=== PATIENT | female | born 1955 | race Caucasian/White ===

== ENCOUNTER 2019-10-04 10:16 | Outpatient (CLI) | payer OTHER, SELFPAY ==
--- NOTE | ~2019-10-04 | US_ITS ---
EXAMINATION: US venous doppler [facility] EXAM DATE: 10/04/2019 10:50 INDICATION: Left leg pain. TECHNIQUE: Multiple grayscale, color flow and Doppler images of the left lower extremity deep venous system were obtained and reviewed. There is no prior study for comparison. FINDINGS: The left common femoral, femoral and profunda veins demonstrate normal color flow, respirat ory variation, augmentation and compressibility. Compressibility, color flow confirmed within the le ft popliteal, posterior tibial, peroneal, and greater saphenous veins. IMPRESSION: 1. No left lower extremity deep venous thrombosis. Reviewed, dictated and finalized at location B.
== END 2019-10-04 10:17 | disposition home or self-care (01) ==
PROVIDERS: PCP Internal Medicine; Visit Provider Internal Medicine
DX: R52 Pain, unspecified (principal); R60.9 Edema, unspecified
CPT/HCPCS: 93971

== ENCOUNTER 2020-02-29 09:49 | Outpatient (CLI) | payer OTHER, SELFPAY ==
--- NOTE | ~2020-02-29 | MM_ITS ---
EXAMINATION: MM screening kyle BI w gini HISTORY: Screening TECHNIQUE: Craniocaudal and mediolateral oblique 3-D tomosynthesis images were obtained and synthetic 2-D images were generated. CAD analysis was submitted and interpreted. COMPARISON: Comparison to multiple prior studies sequentially, with oldest reviewed study dated 04/2014. BREAST PARENCHYMAL COMPOSITION: The breasts are heterogeneously dense, which may obscure small masses . FINDINGS: There is no evidence of suspicious mass, calcification, or architectural distortion to sugg est malignancy in either breast. There has been no suspicious interval change. IMPRESSION: 1. No mammographic evidence of malignancy. 2. Recommend routine screening mammography in one year. BI-RADS Category 1: Negative Reviewed, dictated and finalized at location A. [facility]
== END 2020-02-29 09:50 | disposition home or self-care (01) ==
LOC: ANHIMG 09:51
PROVIDERS: PCP Internal Medicine; Visit Provider Physician Assistant
DX: Z12.31 Encounter for screening mammogram for malignant neoplasm of breast (principal)
CPT/HCPCS: 77063; 77067

== ENCOUNTER 2020-11-09 00:10 | Day surgery (SDC) | payer OTHER, SELFPAY ==
[2020-11-01 08:35] VITALS: BMI 37.2
--- NOTE | 2020-11-08 18:27 | PM.HPGS ---
History of Present Illness History of Present Illness Consent: Risks, benefits, and alternatives have been discussed and questions answered. Patient agrees to proceed with procedure. Chief complaint: neoplasm screening Narrative: Galilea Elder is a 65 year old female referred for colon cancer screening. Her last colonoscopy was at least 10 years ago Review of Systems Review of Systems: All systems reviewed & are unremarkable except as noted in HPI and below PMFSH Past Medical History Medical History (Updated 11/09/20 @ 07:09 by Greyson Perez MD) Acid reflux H/O vaginal delivery x2 1978, 1976 High cholesterol HTN (hypertension) Lichen sclerosus Sleep apnea Spasmodic dysphonia Surgical History Surgical History H/O breast biopsy 1x right, 3x left H/O tubal ligation 1978 Hx of cholecystectomy 2007 Hx of hysterectomy 1992 Family History Family History Father Diabetes mellitus Cerebrovascular accident Patient's father is Family history of congenital heart disease Family history of arthritis Sibling Family history of blood dyscrasia Mother Patient's mother is Other Family history of cardiovascular disease Family history of gout Family history of malignant neoplasm of breast in first degree relative Hypertension Social History Social History Smoking status: Never smoker Second hand tobacco smoke exposure: No Alcohol intake: current Substance use: never Substance use type: does not use Living arrangements: with family Spiritual care concerns: No Meds Home Medications and Allergies Home Medications Medication Instructions Recorded Confirmed Type ascorbate calcium (vitamin C) 500 500 mg PO DAILY 02/24/19 11/01/20 History mg tablet aspirin 81 mg tablet,delayed 81 mg PO DAILY 02/24/19 11/01/20 History release cholecalciferol (vitamin D3) 100 4,000 unit PO DAILY 02/24/19 11/01/20 History mcg (4,000 unit) capsule fluticasone propionate 50 2 spray NASAL DAILY PRN #15.8 ml 05/13/19 11/01/20 Rx mcg/actuation nasal spray,suspension cyclobenzaprine 5 mg tablet 5 mg PO .QHS PRN #30 tablet 10/04/19 11/01/20 Rx diltiazem HCl 180 mg 360 mg PO DAILY #180 cap 06/27/20 11/01/20 Rx capsule,extended release 24 hr omeprazole 40 mg capsule,delayed 40 mg PO DAILY #90 cap 08/22/20 11/01/20 Rx release clobetasol 1 applic TOPICAL PRN 11/01/20 11/01/20 History Allergies Allergy/AdvReac Type Severity Reaction Status Date / Time codeine AdvReac Mild Nausea Verified 11/09/20 06:21 Exam Resp: Auscultation: clear to auscultation bilaterally Cardio: Rate: regular rate Rhythm: regular rhythm GI: GI Palp: Yes Soft to palpation and No Tenderness to palpation present (GI) Assessment and Plan Assessment and plan (1) Colon cancer screening: Code(s): Z12.11 - Encounter for screening for malignant neoplasm of colon Status: Acute Assessment and Plan: Colonoscopy with possible biopsy or polypectomy or cautery or injection of substances.
[2020-11-09 06:22] VITALS: BP 126/74; PULSE 85; RESP 16; TEMP 36.3; O2SAT 99; BMI 38.4
[2020-11-09] MEDS: LACTATED RINGERS 1,000 ML 150 ML IV CONT (06:37)
--- NOTE | 2020-11-09 07:10 | WPDANESEPPF ---
Anes - Initial Pre Proc Eval Procedure: Operation Date: 11/09/20 07:30 Proposed Procedures p Screening Colonoscopy - Greyson Perez MD Date/Time: 11/09/20 07:10 Surgeon: Greyson Perez MD Pre Op Diagnosis: neoplasm screening Patient Data Age: 65 Gender: F Height: 1.52 m Weight: 89.3 kg Last Vital Signs Temp 97.3 F L 11/09/20 06:22 Pulse 85 11/09/20 06:22 Resp 16 11/09/20 06:22 BP 126/74 11/09/20 06:22 Pulse Ox 99 11/09/20 06:22 Allergies Allergy/AdvReac Type Severity Reaction Status Date / Time codeine AdvReac Mild Nausea Verified 11/09/20 06:21 Home Medications Medication Instructions Recorded Confirmed Type ascorbate calcium (vitamin C) 500 500 mg PO DAILY 02/24/19 11/01/20 History mg tablet aspirin 81 mg tablet,delayed 81 mg PO DAILY 02/24/19 11/01/20 History release cholecalciferol (vitamin D3) 100 4,000 unit PO DAILY 02/24/19 11/01/20 History mcg (4,000 unit) capsule fluticasone propionate 50 2 spray NASAL DAILY PRN #15.8 ml 05/13/19 11/01/20 Rx mcg/actuation nasal spray,suspension cyclobenzaprine 5 mg tablet 5 mg PO .QHS PRN #30 tablet 10/04/19 11/01/20 Rx diltiazem HCl 180 mg 360 mg PO DAILY #180 cap 06/27/20 11/01/20 Rx capsule,extended release 24 hr omeprazole 40 mg capsule,delayed 40 mg PO DAILY #90 cap 08/22/20 11/01/20 Rx release clobetasol 1 applic TOPICAL PRN 11/01/20 11/01/20 History Patient hx anesthesia problems: none Family hx anesthesia problems: none Results Review: All pre-operative results and documents have been reviewed as part of the pre-operative evaluation. [facility] Past Medical History Medical History (Updated 11/09/20 @ 07:11 by Giovanny Colon MD) Acid reflux Angina at rest on occasion; takes diltiazem H/O vaginal delivery x2 1978, 1976 High cholesterol HTN (hypertension) Lichen sclerosus Sleep apnea Spasmodic dysphonia Surgical History Surgical History H/O breast biopsy 1x right, 3x left H/O tubal ligation 1978 Hx of cholecystectomy 2007 Hx of hysterectomy 1992 Family History Family History Father Diabetes mellitus Cerebrovascular accident Patient's father is Family history of congenital heart disease Family history of arthritis Sibling Family history of blood dyscrasia Mother Patient's mother is Other Family history of cardiovascular disease Family history of gout Family history of malignant neoplasm of breast in first degree relative Hypertension Social History Social History Smoking status: Never smoker Second hand tobacco smoke exposure: No Alcohol intake: current Substance use: never Substance use type: does not use Living arrangements: with family Spiritual care concerns: No Anes - Eval Final PreProcedure Day of Procedure 11/09/20 07:10 Patient weight: obese Heart: regular rate and rhythm Lungs: clear to auscultation Airway: Mallampati scale class III Neurological: alert and oriented Last oral intake: >/= 8 hours ASA classification: III Emergent: no Anesthetic plan: proceed Anesthesia type and monitoring: general GIVS and standard monitoring Results Review: All pre-operative results and documents have been reviewed as part of the pre-operative evaluation. Informed Consent: The patient's anesthetic plan and its attendant risks and benefits were discussed with the patient/family/POA. Questions were solicited and answers provided to the satisfaction of the patient/family/POA.
[2020-11-09 07:48] VITALS: BP 107/44; PULSE 74; RESP 18; O2SAT 98
[2020-11-09 07:58] VITALS: BP 123/54; PULSE 72; RESP 16; O2SAT 98
[2020-11-09 08:08] VITALS: BP 122/51; PULSE 68; RESP 20; O2SAT 98
== END 2020-11-09 08:18 | disposition home or self-care (01) ==
PROVIDERS: PCP Internal Medicine; Visit Provider Internal Medicine Gastroenterology
PROC: 0DJD8ZZ Inspection of Lower Intestinal Tract, Via Natural or Artificial Opening Endoscopic (ICD-10-PCS; CPT 45378; principal; 2020-11-09 07:30)
DX: Z12.11 Encounter for screening for malignant neoplasm of colon (principal); K57.30 Diverticulosis of large intestine without perforation or abscess without bleeding; K21.9 Gastro-esophageal reflux disease without esophagitis; I10 Essential (primary) hypertension; E78.00 Pure hypercholesterolemia, unspecified; G47.30 Sleep apnea, unspecified; J38.3 Other diseases of vocal cords; L90.0 Lichen sclerosus et atrophicus; Z79.82 Long term (current) use of aspirin; E66.9 Obesity, unspecified; Z68.38 Body mass index [BMI] 38.0-38.9, adult
CPT/HCPCS: 45378; J2704; J7120

== ENCOUNTER 2021-05-03 08:30 | Outpatient (CLI) | payer OTHER, SELFPAY ==
--- NOTE | ~2021-05-03 | MM_ITS ---
EXAMINATION: MM screening [facility] BI w gini HISTORY: Screening mammogram TECHNIQUE: Craniocaudal and mediolateral oblique 3-D tomosynthesis images were obtained and synthetic 2-D images were generated. CAD analysis was submitted and interpreted. COMPARISON: 02/29/2020, 12/20/2018, 12/02/2018 BREAST PARENCHYMAL COMPOSITION: The breasts are heterogeneously dense, which may obscure small masses . FINDINGS: There is no suspicious mass, calcification, or architectural distortion to suggest malignan cy in either breast. There has been no suspicious interval change. IMPRESSION: 1. No mammographic evidence of malignancy. 2. Recommend routine screening mammography in one year. BI-RADS Category 1: Negative Reviewed, dictated and finalized at location A.
== END 2021-05-03 08:31 | disposition home or self-care (01) ==
LOC: ANHIMG 08:31
PROVIDERS: PCP Internal Medicine; Visit Provider Student in an Organized Health Care Education/Training Program
DX: Z12.31 Encounter for screening mammogram for malignant neoplasm of breast (principal)
CPT/HCPCS: 77063; 77067

== ENCOUNTER 2021-07-11 06:48 | Outpatient (CLI) | payer OTHER, SELFPAY ==
[2021-07-11 07:13] LABS: Basophils Absolute Auto 0.1 K/mm3 (0.0-0.1); Basophils Percent Auto 0.8 % (0.2-1.2); Eosinophils Percent Auto 0.1 % (0-4.4); Hematocrit 36.6 % (37.0-47.0); Hemoglobin 10.8 g/dL (12.0-15.0); Immature Granulocyte Absolute 0.01 K/mm3 (0.00-0.031); Immature Granulocyte Percent A 0.1 % (0-0.5); Lymphocytes Absolute Auto 3.02 K/mm3 (0.9-3.2); Lymphocytes Percent Auto 32.9 % (18.3-44.2); Mean Corpuscular HGB Conc 29.5 g/dl (32-36); Mean Corpuscular Volume 81.3 fl (80-100); Monocytes Absolute Auto 0.8 K/mm3 (0.1-0.6); Monocytes Percent Auto 8.4 % (2.6-8.5); Neutrophils Absolute Auto 5.3 K/mm3 (1.3-6.7); Neutrophils Percent Auto 57.7 % (45.5-73.1); Platelet Count Result 471 k/mm3 (150-375); Red Cell Distribution Width 14.9 % (11.5-14.5); White Blood Count 9.2 K/mm3 (4.5-10.0)
[2021-07-11 07:27] LABS: Alanine Aminotransferase 22 U/L (6-35); Alkaline Phosphatase 126 U/L (38-126); Anion Gap 5 mmol/L (8-16); Aspartate Amino Transferase 27 U/L (14-36); Bilirubin,Total 0.4 mg/dL (0.2-1.3); Blood Urea Nitrogen 14 mg/dL (7-17); Calcium 8.4 mg/dL (8.4-10.2); Carbon Dioxide 29 mmol/L (22-30); Chloride 106 mmol/L (98-107); Cholesterol 250 mg/dL (0-200); Estimated Glomerular Filt Rate > 60; Glucose 119 mg/dL (65-110); HDL Direct 49 mg/dL; Sodium 140 mmol/L (137-145); Triglycerides 115 mg/dL (<150)
[2021-07-11 07:39] LABS: LDL Cholesterol Direct 148 mg/dL
[2021-07-11 07:50] LABS: Anisocytosis 1+ (NORMAL); Hypochromasia 2+ (NORMAL); Poikilocytosis 1+ (NORMAL)
[2021-07-11 08:34] LABS: Folic Acid 5.3 ng/mL (2.76->20)
== END 2021-07-11 06:49 | disposition home or self-care (01) ==
LOC: ANHLAB 06:50
PROVIDERS: PCP Internal Medicine; Visit Provider Internal Medicine
DX: E78.5 Hyperlipidemia, unspecified (principal); R53.83 Other fatigue
CPT/HCPCS: 36415; 80053; 80061; 82607; 82746; 84443; 85025

== ENCOUNTER 2021-07-22 14:38 | Outpatient (CLI) | payer OTHER, SELFPAY ==
--- NOTE | ~2021-07-22 | DEXA_ITS ---
Bone Density Report Name: HARINDER DOWELL Age: 66 Sex: Female Ethnicity: White Date of : 1955 Indication: osteopenia; parental hip fracture; height loss; hysterectomy; postmenopausal Referring Provider: SHAYNA MUKHERJEE Study: Bone densitometry was performed. Exam Date: July 22, 2021 Accession number: [id number] Bone Density: Region BMD T-score Z-score Classification AP Spine(L2, L3, L4) 0.833 -2.2 -0.2 Osteopenia Femoral Neck (Left) 0.593 -2.3 -0.7 Osteopenia Total Hip (Left) 0.789 -1.3 0.1 Osteopenia Femoral Neck (Right) 0.604 -2.2 -0.6 Osteopenia Total Hip (Right) 0.801 -1.2 0.2 Osteopenia Total Hip Mean 0.795 -1.3 0.2 Osteopenia World Health Organization criteria for BMD impression classify patients as: Normal (T-score at or above -1.0), Osteopenia (T-score between -1.0 and -2.5), or Osteoporosis (T-score at or below -2.5). 10-year Fracture Risk(1): Major Osteoporotic Fracture 19% Hip Fracture 2.8% Reported Risk Factors: [place] (), Neck BMD=0.593, BMI=39.5, parental fracture (1) FRAX(R) Version 3.08. Fracture probability calculated for an untreated patient. Fracture probability may be lower if the patient has received treatment. Previous Exams: Region Exam Age BMD T-score BMD Change BMD Change Date g/cm2 vs Baseline vs Previous AP Spine (L2-L4) 07/22/2021 66 0.833 -2.2 -0.009 (-1.0%) -0.020 (-2.4%) 12/22/2018 63 0.854 -2.0 0.012 (1.4%) 0.012 (1.4%) 12/19/2014 59 0.842 -2.2 Total Hip(Left) 07/22/2021 66 0.789 -1.3 -0.045 (-5.4%) -0.051 (-6.0%) 12/22/2018 63 0.840 -0.8 0.006 (0.7%) 0.006 (0.7%) 12/19/2014 59 0.834 -0.9 Total Hip(Right) 07/22/2021 66 0.801 -1.2 -0.049 (-5.7%) -0.024 (-2.9%) 12/22/2018 63 0.825 -1.0 -0.025 (-2.9%) -0.025 (-2.9%) 12/19/2014 59 0.850 -0.8 *Denotes significance at 95% confidence level, LSC for AP Spine = 0.022 g/cm2, LSC for Total Hip = 0.027 g/cm2 Clinical Information Provided by Patient: Parent has had a hip fracture Has used the following medications: HRT (i.e. estrogen/hormone therapy), Vitamin D Has the following medical conditions: Hysterectomy Patient maximum height was 62 Menopause Age: 34 No regular weight bearing exercise Drinks caffeinated beverages Onset of menses at age 10 Number of children 2 Impression: The patient has low bone mass, based on the Left Femoral Neck T-score. The patient has an estimated
== END 2021-07-22 14:39 | disposition home or self-care (01) ==
LOC: ANHIMG 14:40
PROVIDERS: PCP Internal Medicine; Visit Provider Student in an Organized Health Care Education/Training Program
DX: Z78.0 Asymptomatic menopausal state (principal); M85.88 Other specified disorders of bone density and structure, other site; M85.851 Other specified disorders of bone density and structure, right thigh; M85.852 Other specified disorders of bone density and structure, left thigh
CPT/HCPCS: 77080

== ENCOUNTER 2021-09-03 07:03 | Outpatient (CLI) | payer OTHER, SELFPAY ==
[2021-09-03 07:15] LABS: Basophils Absolute Auto 0.1 K/mm3 (0.0-0.1); Basophils Percent Auto 0.6 % (0.2-1.2); Eosinophils Absolute Auto 0.3 K/mm3 (0-0.3); Eosinophils Percent Auto 2.8 % (0-4.4); Hematocrit 37.2 % (37.0-47.0); Immature Granulocyte Absolute 0.02 K/mm3 (0.00-0.031); Immature Granulocyte Percent A 0.2 % (0-0.5); Lymphocytes Percent Auto 33.5 % (18.3-44.2); Mean Corpuscular HGB Conc 29.6 g/dl (32-36); Mean Corpuscular Hemoglobin 23.5 pg (26-34); Mean Corpuscular Volume 79.3 fl (80-100); Mean Platelet Volume 9.1 fl (7.4-10.4); Monocytes Absolute Auto 0.8 K/mm3 (0.1-0.6); Monocytes Percent Auto 8.4 % (2.6-8.5); Neutrophils Absolute Auto 4.9 K/mm3 (1.3-6.7); Neutrophils Percent Auto 54.5 % (45.5-73.1); Platelet Count Result 454 k/mm3 (150-375); Red Blood Count 4.69 M/mm3 (4.2-5.4); Red Cell Distribution Width 17.2 % (11.5-14.5)
[2021-09-03 07:24] LABS: Anion Gap 8 mmol/L (8-16); Blood Urea Nitrogen 21 mg/dL (7-17); Carbon Dioxide 27 mmol/L (22-30); Chloride 106 mmol/L (98-107); Estimated Glomerular Filt Rate > 60; Glucose 118 mg/dL (65-110); Potassium 3.8 mmol/L (3.4-5.0); Sodium 141 mmol/L (137-145)
[2021-09-03 07:59] LABS: Iron 32 ug/dL (37-170)
[2021-09-03 08:09] LABS: Percent Iron Saturation 8 % (20-50)
[2021-09-03 08:30] LABS: Folic Acid 4.7 ng/mL (2.76->20)
== END 2021-09-03 07:04 | disposition home or self-care (01) ==
PROVIDERS: PCP Internal Medicine; Visit Provider Internal Medicine
DX: D64.9 Anemia, unspecified (principal); R73.9 Hyperglycemia, unspecified
CPT/HCPCS: 36415; 80048; 82607; 82746; 83036; 83540; 83550; 85025

== ENCOUNTER 2021-12-27 08:10 | Outpatient (CLI) | payer OTHER, SELFPAY ==
[2021-12-27 08:25] LABS: Basophils Absolute Auto 0.1 K/mm3 (0.0-0.1); Basophils Percent Auto 0.6 % (0.2-1.2); Eosinophils Percent Auto 0.1 % (0-4.4); Hematocrit 40.2 % (37.0-47.0); Hemoglobin 12.4 g/dL (12.0-15.0); Immature Granulocyte Absolute 0.02 K/mm3 (0.00-0.031); Immature Granulocyte Percent A 0.2 % (0-0.5); Lymphocytes Absolute Auto 3.01 K/mm3 (0.9-3.2); Mean Corpuscular HGB Conc 30.8 g/dl (32-36); Mean Corpuscular Hemoglobin 25.6 pg (26-34); Mean Corpuscular Volume 82.9 fl (80-100); Mean Platelet Volume 9.4 fl (7.4-10.4); Monocytes Absolute Auto 0.7 K/mm3 (0.1-0.6); Monocytes Percent Auto 8.1 % (2.6-8.5); Neutrophils Absolute Auto 4.8 K/mm3 (1.3-6.7); Platelet Count Result 427 k/mm3 (150-375); Red Blood Count 4.85 M/mm3 (4.2-5.4); Red Cell Distribution Width 16.4 % (11.5-14.5); White Blood Count 8.6 K/mm3 (4.5-10.0)
[2021-12-27 09:46] LABS: Folic Acid 5.4 ng/mL (2.76->20)
[2021-12-27 10:29] LABS: Iron 30 ug/dL (37-170)
[2021-12-27 10:38] LABS: Percent Iron Saturation 7 % (20-50)
== END 2021-12-27 08:11 | disposition home or self-care (01) ==
LOC: ANHLAB 08:12
PROVIDERS: PCP Internal Medicine; Visit Provider Internal Medicine
DX: D64.9 Anemia, unspecified (principal)
CPT/HCPCS: 36415; 82607; 82746; 83540; 83550; 85025

== ENCOUNTER 2022-04-09 00:46 | Day surgery (SDC) | payer OTHER, SELFPAY ==
[2022-03-25 11:23] VITALS: BMI 37.2
[2022-04-09 08:07] VITALS: BP 135/79; PULSE 81; RESP 17; TEMP 36.5; O2SAT 96; BMI 37.8
[2022-04-09] MEDS: LACTATED RINGERS 1,000 ML 150 ML IV CONT (08:16)
--- NOTE | 2022-04-09 08:29 | PM.HPGS ---
History of Present Illness History of Present Illness Consent: Risks, benefits, and alternatives have been discussed and questions answered. Patient agrees to proceed with procedure. Chief complaint: epigastric pain, anemia, GERD Narrative: Galilea Elder is a 67 year old female who was referred for investigation of anemia with iron deficiency. She does not see blood in her stools but noticed that her stools have been black at times.? She was started on iron several weeks ago, however her stools were noted to be black even before she began taking the iron supplement.? Because iron bothers her stomach, she does not take it every day. There has been no appreciable change in her iron levels which were 32 last August and 30 when last checked about 2 months ago.? Iron saturation is low at 7%. She does have an upset stomach from time to time.? She takes omeprazole daily for heartburn and if she misses a dose she has significant symptoms.? Otherwise her symptoms are well controlled.? She denies dysphagia.? Epigastric discomfort is not worse or improved by eating.?? Review of Systems Review of Systems: All systems reviewed & are unremarkable except as noted in HPI and below PMFSH Past Medical History Medical History Acid reflux Angina at rest on occasion; takes diltiazem H/O vaginal delivery x2 1978, 1976 High cholesterol History of COVID-19 02/25/21 HTN (hypertension) Lichen sclerosus Osteopenia Sleep apnea Spasmodic dysphonia Surgical History Surgical History H/O breast biopsy 1x right, 3x left H/O tubal ligation 1978 Hx of cholecystectomy 2007 Hx of hysterectomy 1992 Family History Family History Father Diabetes mellitus Cerebrovascular accident Patient's father is Family history of congenital heart disease Family history of arthritis Sibling Family history of blood dyscrasia Mother Patient's mother is Other Family history of cardiovascular disease Family history of gout Family history of malignant neoplasm of breast in first degree relative Hypertension Social History Social History Smoking status: Never smoker Second hand tobacco smoke exposure: No Substance use: never Substance use type: does not use Lack of Transportation: No Lack of Food: Never True Current Housing: I Have Housing Concerned About Future Housing: No Difficulty Paying Gas/Electric Bills: No Difficulty Paying for Meds: No Currently Unemployed: No Education: High School Diploma/GED Difficulty w/ Childcare or Family Care: No Living arrangements: alone Spiritual care concerns: No Meds Home Medications and Allergies Home Medications Medication Instructions Recorded Confirmed Type aspirin 81 mg tablet,delayed 81 mg PO DAILY 02/24/19 04/09/22 History release (Adult Aspirin Regimen) cholecalciferol (vitamin D3) 100 4,000 unit PO DAILY 02/24/19 04/09/22 History mcg (4,000 unit) capsule cyclobenzaprine 5 mg tablet 5 mg PO .QHS PRN muscle spasm #30 10/04/19 04/09/22 Rx tabs triamcinolone acetonide 0.05 % 1 applic topical DAILY 04/09/21 04/09/22 History topical ointment alendronate 70 mg tablet See Rx Instructions .Route 12/16/21 04/09/22 Rx .COMPLEX #12 tabs omeprazole 40 mg capsule,delayed 40 mg PO DAILY #90 caps 02/24/22 04/09/22 Rx release diltiazem HCl 180 mg 360 mg PO DAILY #180 caps 03/23/22 04/09/22 Rx capsule,extended release 24 hr Allergies Allergy/AdvReac Type Severity Reaction Status Date / Time codeine AdvReac Mild Nausea Verified 04/09/22 08:06 Vital Signs Vital Signs - 24 hr 04/09/22 08:07 Temperature 36.5 C Pulse Rate 81 Respiratory Rate 17 Blood Pressure 135/79 Pulse Oximetry 96 Oxygen Delivery
--- NOTE | 2022-04-09 09:00 | WPDANESEPPF ---
Anes - Initial Pre Proc Eval Procedure: Operation Date: 04/09/22 09:30 Proposed Procedures p Esophagogastroduodenoscopy - Greyson Perez MD Date/Time: 04/09/22 09:00 Surgeon: Greyson Perez MD Pre Op Diagnosis: epigastric pain, anemia, GERD Patient Data Age: 67 Gender: F Height: 1.52 m Weight: 88 kg Last Vital Signs Temp 97.7 F 04/09/22 08:07 Pulse 81 04/09/22 08:07 Resp 17 04/09/22 08:07 BP 135/79 04/09/22 08:07 Pulse Ox 96 04/09/22 08:07 O2 Del Method Room Air 04/09/22 08:07 Allergies Allergy/AdvReac Type Severity Reaction Status Date / Time codeine AdvReac Mild Nausea Verified 04/09/22 08:06 Home Medications Medication Instructions Recorded Confirmed Type aspirin 81 mg tablet,delayed 81 mg PO DAILY 02/24/19 04/09/22 History release (Adult Aspirin Regimen) cholecalciferol (vitamin D3) 100 4,000 unit PO DAILY 02/24/19 04/09/22 History mcg (4,000 unit) capsule cyclobenzaprine 5 mg tablet 5 mg PO .QHS PRN muscle spasm #30 10/04/19 04/09/22 Rx tabs triamcinolone acetonide 0.05 % 1 applic topical DAILY 04/09/21 04/09/22 History topical ointment alendronate 70 mg tablet See Rx Instructions .Route 12/16/21 04/09/22 Rx .COMPLEX #12 tabs omeprazole 40 mg capsule,delayed 40 mg PO DAILY #90 caps 02/24/22 04/09/22 Rx release diltiazem HCl 180 mg 360 mg PO DAILY #180 caps 03/23/22 04/09/22 Rx capsule,extended release 24 hr Patient hx anesthesia problems: none Family hx anesthesia problems: none Results Review: All pre-operative results and documents have been reviewed as part of the pre-operative evaluation. [facility] Past Medical History Medical History Acid reflux Angina at rest on occasion; takes diltiazem H/O vaginal delivery x2 1978, 1976 High cholesterol History of COVID-19 02/25/21 HTN (hypertension) Lichen sclerosus Osteopenia Sleep apnea Spasmodic dysphonia Surgical History Surgical History H/O breast biopsy 1x right, 3x left H/O tubal ligation 1978 Hx of cholecystectomy 2007 Hx of hysterectomy 1992 Family History Family History Father Diabetes mellitus Cerebrovascular accident Patient's father is Family history of congenital heart disease Family history of arthritis Sibling Family history of blood dyscrasia Mother Patient's mother is Other Family history of cardiovascular disease Family history of gout Family history of malignant neoplasm of breast in first degree relative Hypertension Social History Social History Smoking status: Never smoker Second hand tobacco smoke exposure: No Substance use: never Substance use type: does not use Lack of Transportation: No Lack of Food: Never True Current Housing: I Have Housing Concerned About Future Housing: No Difficulty Paying Gas/Electric Bills: No Difficulty Paying for Meds: No Currently Unemployed: No Education: High School Diploma/GED Difficulty w/ Childcare or Family Care: No Living arrangements: alone Spiritual care concerns: No Anes - Eval Final PreProcedure Day of Procedure 04/09/22 09:00 Patient weight: obese Heart: regular rate and rhythm Lungs: clear to auscultation Airway: Mallampati scale class II Neurological: alert and oriented Last oral intake: >/= 8 hours ASA classification: III Emergent: no Anesthetic plan: proceed Anesthesia type and monitoring: general GIVS and standard monitoring Results Review: All pre-operative results and documents have been reviewed as part of the pre-operative evaluation. Informed Consent: The patient's anesthetic plan and its attendant risks and benefits were discussed with the patient/family/POA. Questions were solicited and
[2022-04-09 09:15] VITALS: BP 108/57; PULSE 64; RESP 20; O2SAT 100
[2022-04-09 09:25] VITALS: BP 123/66; PULSE 64; RESP 14; O2SAT 96
[2022-04-09 09:35] VITALS: BP 138/74; PULSE 60; RESP 17; O2SAT 95
== END 2022-04-09 09:45 | disposition home or self-care (01) ==
PROVIDERS: PCP Internal Medicine; Visit Provider Internal Medicine Gastroenterology
PROC: 0DJ08ZZ Inspection of Upper Intestinal Tract, Via Natural or Artificial Opening Endoscopic (ICD-10-PCS; CPT 43235; principal; 2022-04-09 09:30)
DX: D50.9 Iron deficiency anemia, unspecified (principal); K21.9 Gastro-esophageal reflux disease without esophagitis; Z79.82 Long term (current) use of aspirin; E78.00 Pure hypercholesterolemia, unspecified; I10 Essential (primary) hypertension; G47.30 Sleep apnea, unspecified; M85.80 Other specified disorders of bone density and structure, unspecified site; E66.9 Obesity, unspecified; Z68.37 Body mass index [BMI] 37.0-37.9, adult
CPT/HCPCS: 43239; 87081; 88305; J2704; J7120

== ENCOUNTER 2022-07-04 09:19 | Outpatient (CLI) | payer OTHER, SELFPAY ==
[2022-07-04 10:33] LABS: Basophils Absolute Auto 0.1 K/mm3 (0.0-0.1); Basophils Percent Auto 0.6 % (0.2-1.2); Eosinophils Absolute Auto 0.3 K/mm3 (0-0.3); Hematocrit 41.4 % (37.0-47.0); Hemoglobin 12.8 g/dL (12.0-15.0); Immature Granulocyte Absolute 0.03 K/mm3 (0.00-0.031); Immature Granulocyte Percent A 0.4 % (0-0.5); Lymphocytes Absolute Auto 2.72 K/mm3 (0.9-3.2); Lymphocytes Percent Auto 32.3 % (18.3-44.2); Mean Corpuscular HGB Conc 30.9 g/dl (32-36); Mean Corpuscular Hemoglobin 26.9 pg (26-34); Mean Corpuscular Volume 87.2 fl (80-100); Monocytes Absolute Auto 0.7 K/mm3 (0.1-0.6); Monocytes Percent Auto 8.1 % (2.6-8.5); Neutrophils Absolute Auto 4.7 K/mm3 (1.3-6.7); Neutrophils Percent Auto 55.6 % (45.5-73.1); Platelet Count Result 416 k/mm3 (150-375); Red Blood Count 4.75 M/mm3 (4.2-5.4); Red Cell Distribution Width 16.2 % (11.5-14.5); White Blood Count 8.4 K/mm3 (4.5-10.0)
[2022-07-04 10:49] LABS: Alanine Aminotransferase 26 U/L (6-35); Albumin Level 4.2 g/dL (3.5-5.1); Alkaline Phosphatase 87 U/L (38-126); Anion Gap 5 mmol/L (8-16); Aspartate Amino Transferase 28 U/L (14-36); Bilirubin,Total 0.5 mg/dL (0.2-1.3); Blood Urea Nitrogen 17 mg/dL (7-17); Calcium 8.9 mg/dL (8.4-10.2); Carbon Dioxide 33 mmol/L (22-30); Chloride 104 mmol/L (98-107); Cholesterol 246 mg/dL (0-200); Estimated Glomerular Filt Rate > 60; Glucose 96 mg/dL (65-110); HDL Direct 49 mg/dL; Potassium 3.8 mmol/L (3.4-5.0); Sodium 142 mmol/L (137-145); Triglycerides 79 mg/dL (<150)
[2022-07-04 10:54] LABS: Iron 48 ug/dL (37-170)
[2022-07-04 11:00] LABS: LDL Cholesterol Direct 165 mg/dL
[2022-07-04 11:05] LABS: Percent Iron Saturation 13 % (20-50)
[2022-07-04 11:24] LABS: Thyroid Stimulating Hormone 0.978 uIU/mL (0.465-4.680)
[2022-07-04 12:45] LABS: Folic Acid 5.2 ng/mL (2.76->20)
== END 2022-07-04 09:20 | disposition home or self-care (01) ==
PROVIDERS: PCP Internal Medicine; Visit Provider Internal Medicine
DX: D64.9 Anemia, unspecified (principal); E78.5 Hyperlipidemia, unspecified; R53.83 Other fatigue; R73.9 Hyperglycemia, unspecified
CPT/HCPCS: 36415; 80053; 80061; 82607; 82746; 83540; 83550; 84443; 85025

== ENCOUNTER 2022-07-16 11:33 | Outpatient (CLI) | payer OTHER, SELFPAY ==
--- NOTE | ~2022-07-16 | XR_ITS ---
Thoracic spine: Clinical Indication: Back pain AP and lateral views were performed. No fracture is seen. There is normal alignment of the vertebrae. The intervertebral disc spaces appe ar normal. Paravertebral soft tissues appear normal. Impression: No significant abnormalities noted. Reviewed, dictated and finalized at [facility]. Impression: No significant abnormalities noted.
--- NOTE | ~2022-07-16 | XR_ITS ---
EXAMINATION: XR lumbar spine 2-3V DATE: 07/16/2022 12:09 INDICATION: Left-sided dorsalgia TECHNIQUE: Anteroposterior and lateral views of the lumbar spine, and cone-down lateral view of the l umbosacral junction were obtained. COMPARISON: None. FINDINGS: 14 degree lumbar dextroscoliosis. 4 mm anterolisthesis L4 on L5. Vertebral body heights are normal. M ild to moderate left-sided predominant disc height loss at L1-L2. Additional moderate disc height los s at L3-L4 and mild disc height loss at L2-L3, L4-L5, L5-S1 and at multiple levels in the visualized lower thoracic spine. Severe bilateral facet osteoarthritis at L4-L5 and L5-S1. There is also mild bi lateral hip and sacroiliac osteoarthritis. Cholecystectomy clips in right upper quadrant. IMPRESSION: 1. 14 degrees lumbar dextroscoliosis with moderate spondylosis. Reviewed, dictated and finalized at location B.
== END 2022-07-16 11:34 | disposition home or self-care (01) ==
PROVIDERS: PCP Internal Medicine; Visit Provider Internal Medicine
DX: M47.896 Other spondylosis, lumbar region (principal)
CPT/HCPCS: 72070; 72100

== ENCOUNTER 2022-08-06 14:53 | Outpatient (CLI) | payer OTHER, SELFPAY ==
--- NOTE | ~2022-08-06 | MM_ITS ---
EXAMINATION: MM screening kyle BI w gini HISTORY: Screening mammogram TECHNIQUE: Craniocaudal and mediolateral oblique 3-D tomosynthesis images were obtained and synthetic 2-D images were generated. CAD analysis was submitted and interpreted. COMPARISON: 05/03/2021, 02/29/2020 bilateral screening mammogram examinations 12/2018 diagnostic left mammogram and complete left breast ultrasound examination 12/02/2018 bilateral screening mammogram BREAST PARENCHYMAL COMPOSITION: The breasts are heterogeneously dense, which may obscure small masses . FINDINGS: Stable bilateral fibroid or asymmetry since 12/02/2018. History of prior bilateral breast b iopsies, one open biopsy on the right and 3 open biopsies on the left reportedly. There is no evidenc e of suspicious mass, calcification, or architectural distortion to suggest malignancy in either [facility]. There has been no suspicious interval change. IMPRESSION: 1. No mammographic evidence of malignancy. 2. Recommend routine screening mammography in one year. BI-RADS Category 2: Benign finding(s). Reviewed, dictated and finalized at location A.
== END 2022-08-06 14:54 | disposition home or self-care (01) ==
LOC: ANHIMG 14:55
PROVIDERS: PCP Internal Medicine; Visit Provider Registered Nurse
DX: Z12.31 Encounter for screening mammogram for malignant neoplasm of breast (principal)
CPT/HCPCS: 77063; 77067

== ENCOUNTER 2022-08-27 10:00 | Outpatient (RCR) | payer OTHER, SELFPAY ==
--- NOTE | 2022-07-23 11:02 | PTOPEVAL1 ---
Assessment and note entered by Shaunna Cabezas, PT Evaluation Information Assessment Status Evaluation Diagnosis back pain Onset 1 year Subjective Information gradual increase in back pain; chronic pain in back 5 years; have never had PT for her back; had xrays: reports dextroscoliosis, anterolisthesis L 4-5; decrease disc height, bilateral hip and SI arthritis; about 6 weeks ago started water aerobics Reported Pain Level Pain Score Self Report Additional Pain Score Comments pain range in the past week 2-9/10; low back, into L anterior thigh constantly; R leg anterior thigh- intermittent; Oswestry self assessment functional score of 42% limitation in activity; increase with standing 10 min; lifting; decrease pain: take ibuprofen, hot shower do not sleep well in general--toss/ turn, usually lie on R side- educated on use of pillow between knees Assessment PT Clinical Summary Galilea has the diagnosis of back pain. She reports chronic back pain, with pain into R LE intermittent and L LE constant. The xray report states degenerative change in lumbar spine, with bilateral hip and SIJ OA. Self assessment Oswestry score of 42% limitation in activity level. 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 With the evaluation: she has poor standing position of her trunk and hips, with tightness over R and L hamstring, piriformis and anterior hip/quad muscles; and decreased trunk strength. Skilled PT services are indicated for modalities to decrease pain, therapeutic exercises to stretch trunk and hips and strength trunk, with education for home exercises and posture correction. Plan of Care Interventions Electrical Stimulation,Hot Pack/Cold Pack,Manual Therapy,Mechanical Traction,Neuro Re-education, Patient Education,Therapeutic Activities, Therapeutic Exercise,Ultrasound,Other Other Interventions guillermoing, [facility] PT Services Indicated Yes Treatment Frequency and 1-2x/wk for 5 weeks Duration These treatments will address the objective and functional deficits as defined above. The patient will be advanced safely and appropriately in order for the patient to progress towards his/her prior level of function. Additional exercises will be
--- NOTE | 2022-08-13 07:46 | PCPTNOTE ---
Patient canceled 08/13/22 appointment as she has to work.
--- NOTE | 2022-08-27 10:47 | PTOPPROG ---
Assessment and note entered by Shaunna Cabezas, PT Evaluation Information Assessment Status Progress Diagnosis back pain Onset 1 year Subjective Information Galilea reports: back is about the same, not much has changed since had therapy; saw Dr and going to receive a referral for pain management and to have CT scan of back; been doing stretches at home Assessment PT Clinical Summary Galilea has received 5 PT sessions. She called and canceled one appointment. Compared to the initial evaluation: pain rating was 2-9/10 and now 3-6/10; radicular pain into R and L LE is the same; Self assessment Oswestry increased from 42% to 46% limitation in functional activity level; reported standing time improved slightly from 10 to 10-15 min tolerance; slight increase in flexibility with L hamstring, R and L anterior hip-quad length and piriformis; posture has improved- no longer has R shoulder and trunk with forward rotation; Education has been completed on correct posture, body mechanics and HEP. The goals were partially met. HOLD PT at this time, she is to continue with her HEP. She has pain management dr consultation, await for further orders if PT is to continue. Plan of Care Interventions Electrical Stimulation,Hot Pack/Cold Pack,Manual Therapy,Mechanical Traction,Neuro Re-education, Patient Education,Therapeutic Activities, Therapeutic Exercise,Ultrasound,Other Other Interventions taping, IASTM PT Services Indicated Yes Treatment Frequency and 0-2x/wk for 6 weeks---await new orders from pain Duration management dr if PT to continue These treatments will address the objective and functional deficits as defined above. The patient will be advanced safely and appropriately in order for the patient to progress towards his/her prior level of function. Additional exercises will be introduced and as well as a comprehensive home exercise program upon discharge, if needed, ?to ensure carryover of functional gains achieved in the clinic. This treatment plan has been reviewed and agreement upon by the patient.
--- NOTE | 2022-08-29 08:14 | OPREHPOC ---
Outpatient Therapy Plan of Care This is a Multidisciplinary Plan of Care that may contain components documented by all disciplines (PT, OT, and ST.) PT Problem 1 PT Problem #1 Knowledge Deficit PT Goal 1 Goal 1* indep with HEP 2* good posture awareness with activities Progress Met Comment 08-27-22 progress/ HOLD await orders from pain management dr if to continue treatment PT Problem 2 PT Problem #2 Pain PT Goal 1 Goal 1* decrease pain rating to 6/10 at worst 2* self assessment Oswestry score of 32% limitation in activity 3* radicular pain into L LE to mid thigh at worst 4* radicular pain into R LE to anterior hip at worst 5* pt report standing tolerance of 15 minutes Progress Partially Met Comment 08-27-22 progress/ HOLD met goal #1; #5 reported 10-15 minutes await orders from pain management dr if to continue treatment PT Problem 3 PT Problem #3 Impaired Flexibility PT Goal 1 Goal hamstring length with supine SLR 1* R 70' 2* L 70 piriformis length with supine stretch, hip and knee > 90', knee cross midline of body 3* R 4 * L anterior hip/quad length with prone knee flexion 5* R 115' 6* L 115' Progress Partially Met Comment 08-27-22 progress/ HOLD met 2,3,4; #5 & 6 increased to 110' await orders from pain management dr if to continue treatment PT Problem 4 PT Problem #4 Impaired Strength PT Goal 1 Goal 1* in standing, no forward rotation of R trunk an
--- NOTE | 2022-10-21 11:03 | PCPTNOTE ---
PHYSICAL THERAPY DISCHARGE 10-21-22 Attending Provider: Silvio Day DO Patient:Galilea Elder Date of :1955 Mrs. Elder has not returned for any additional treatment after the 08-27-22 reevaluation, when she was going to go to pain management. Therefore, she will be discharged from PT at this time.
== END 2022-10-21 23:59 | disposition home or self-care (01) ==
LOC: ANHPT 10:00
PROVIDERS: PCP Internal Medicine; Visit Provider Internal Medicine
DX: M54.9 Dorsalgia, unspecified (principal)
CPT/HCPCS: 97014; 97110; 97140; 97161; 97530; G0283

== ENCOUNTER 2022-09-01 07:33 | Outpatient (CLI) | payer OTHER, SELFPAY ==
--- NOTE | ~2022-09-01 | CT_ITS ---
EXAMINATION: CT abdomen pelvis w con DATE: 09/01/2022 08:02 INDICATION: Right lower quadrant abdominal pain TECHNIQUE: Computed tomography (CT) of the abdomen and pelvis was performed with 100 CC Omnipaque 350 intravenous contrast. Automated exposure control and iterative reconstruction technique were employe d. Exam dose: 983.60 mGy-cm total exam DLP. COMPARISON: 07/31/2015 CT abdomen pelvis FINDINGS: Small fat-containing right foramen of Bochdalek hernia. The lung bases are clear of infiltrate or consolidation. Heart size is normal. Coronary artery calcif ication. No pericardial or pleural effusion. Small sliding hiatal hernia. Status post cholecystectomy. The liver, spleen, pancreas, and adrenal glands are unremarkable. No bile duct or pancreatic duct dilatation. Occasional bilateral renal cysts, largest situated on the right, measuring up to 2 cm approximately. No urinary tract calculus or hydroureteronephrosis. The urinary bladder is unremarkable. Status post hysterectomy. There is atherosclerotic calcification of the abdominal aorta and branches but no abdominal aortic an eurysm. No intraperitoneal or retroperitoneal or pelvic mass lesion or adenopathy or ascites. There are multiple diverticula of the left and to a lesser extent right colon. No CT evidence of dive rticulitis. Normal appendix. No bowel obstruction, bowel wall thickening, pneumatosis or intraperiton eal free air. Moderately severe degenerative disc disease at L1-2. No suspicious osteolytic or osteoblastic lesions are noted. IMPRESSION: Diverticulosis of left and right colon; no CT evidence of diverticulitis Normal appendix Bilateral renal cysts Status post cholecystectomy Small fat-containing right foramen of Bochdalek hernia Reviewed, dictated and finalized at [facility]. Reviewed, dictated and finalized at [facility]. IMPRESSION: Diverticulosis of left and right colon; no CT evidence of divertic ulitis Normal appendix Bilateral renal cysts Status post cholecystectomy Small fat-containing right foramen of Bochdalek hernia
[2022-09-01 07:53] LABS: Estimated Glomerular Filt Rate > 60
== END 2022-09-01 07:34 | disposition home or self-care (01) ==
PROVIDERS: PCP Internal Medicine; Visit Provider Internal Medicine
DX: K57.30 Diverticulosis of large intestine without perforation or abscess without bleeding (principal); N28.1 Cyst of kidney, acquired
CPT/HCPCS: 74177; Q9967

== ENCOUNTER 2022-10-16 12:43 | Outpatient (CLI) | payer OTHER, SELFPAY ==
--- NOTE | ~2022-10-16 | US_ITS ---
EXAMINATION: US renal BI DATE: 10/16/2022 13:25 INDICATION: Bilateral renal cysts. TECHNIQUE: Multiple ultrasound grayscale images of the kidneys were obtained. COMPARISON: CT abdomen and pelvis 09/01/2022 FINDINGS: The right kidney measures 11.1 x 5.3 x 4.4 cm. The left kidney measures 11.5 x 4.9 x 5.9 cm. The kidn eys demonstrate normal parenchymal echogenicity. There are cysts in the kidneys measuring up to 10 mm on the left. There is no hydronephrosis. The bladder is normal. IMPRESSION: 1. Benign cysts in the kidneys. Reviewed, dictated and finalized at [facility].
== END 2022-10-16 12:44 | disposition home or self-care (01) ==
LOC: ANHIMG 12:44
PROVIDERS: PCP Internal Medicine; Visit Provider Internal Medicine Nephrology
DX: N28.1 Cyst of kidney, acquired (principal)
CPT/HCPCS: 76775

== ENCOUNTER 2022-10-27 07:35 | Outpatient (CLI) | payer OTHER, SELFPAY ==
--- NOTE | 2022-10-27 07:48 | ECHO_ITS ---
Patient Info Name: Galilea Elder Age: 67 years : 1955 Gender: Female Ht: 60 in Wt: 195 lbs BSA: 1.98 m2 HR: 81 bpm BP: 120 / 76 mmHg Technical Quality: Fair Exam Date: 10/27/2022 8:01 AM Exam Location: [facility] Patient Status: Outpatient Admit Date: 10/27/2022 Staff Ordering Physician: Harpreet Cyr DO Cell Support Operator: Stacey Larson RDCS Attending Provider: Harpreet Cyr DO Referring Physician: Ger MERA; Exam Type: CA echo doppler color flow Study Info Indications R06.09 - Other forms of dyspnea Complete two-dimensional, color flow and Doppler transthoracic echocardiogram is performed. Summary 1. Complete two-dimensional, color flow and Doppler transthoracic echocardiogram is performed. 2. Left ventricular chamber dimension is normal. 3. Left ventricular systolic function is normal, estimated at 60-65%. 4. The left ventricular diastolic function is grade I diastolic dysfunction. 5. E/e' 10 is mildly elevated. 6. Global longitudinal strain is normal at -19.5%. 7. There is mild aortic valve sclerosis. 8. No pulmonary hypertension, estimated pulmonary arterial systolic pressure is 18 mmHg. Left Ventricle E/e' 10 is mildly elevated. Global longitudinal strain is normal at -19.5%. Left ventricular chamber dimension is normal. Left ventricular systolic function is normal, estimated at 60-65%. The left ventricular diastolic function is grade I diastolic dysfunction. Right Ventricle Right ventricular chamber dimension is normal. Right ventricular systolic function is normal. Left Atria Left atrial chamber dimension is normal. Right Atria Right atrial chamber dimension is normal. Aortic Valve The aortic valve is trileaflet. There is mild aortic valve sclerosis. There is no aortic valve stenosis. There is no aortic valve regurgitation. Pulmonic Valve There is no pulmonic regurgitation. Mitral Valve There is no mitral valve stenosis. There is no mitral valve regurgitation. Tricuspid Valve There is no tricuspid valve regurgitation. No pulmonary hypertension, estimated pulmonary arterial systolic pressure is 18 mmHg. Pericardium/Pleural There is no pericardial effusion. Inferior Vena Cava Normal inferior vena cava with >50% collapse upon inspiration consistent with normal right atrial pressure, 5 mmHg. Aorta The aortic root size at the sinus of Valsalva is normal. Left Ventricular Outflow Tract Name Value Normal LVOT 2D LVOT Diameter 1.9 cm LVOT Doppler LVOT Peak Gradient 6 mmHg LVOT Mean Gradient 3 mmHg LVOT VTI 27 cm LVOT VTI/AV VTI Ratio 0.8 LVOT Stroke Volume 77 ml LVOT CO 5.2 l/min LVOT CI 2.6 l/min/m2 Pulmonic Valve Name Value Normal RVOT Doppler RVOT Peak Gradient 3 mmHg
== END 2022-10-27 07:36 | disposition home or self-care (01) ==
LOC: ANHCARD 07:36
PROVIDERS: PCP Internal Medicine; Visit Provider Internal Medicine Cardiovascular Disease
DX: I35.8 Other nonrheumatic aortic valve disorders (principal); R93.1 Abnormal findings on diagnostic imaging of heart and coronary circulation
CPT/HCPCS: 93306

== ENCOUNTER 2023-02-26 11:43 | Outpatient (CLI) | payer OTHER, SELFPAY ==
--- NOTE | ~2023-02-26 | XR_ITS ---
EXAMINATION: XR knee RT min 4V, XR knee LT min 4V DATE: 02/26/2023 12:09 INDICATION: Primary osteoarthritis of the left and right knees. TECHNIQUE: 1. Weight bearing anteroposterior and Uribe, sunrise, and flexed lateral views of the left knee w ere obtained. 2. Weight bearing anteroposterior and Uribe, sunrise, and flexed lateral views of the right knee were obtained. COMPARISON: None. FINDINGS: Minimal genu varus at the left knee. Normal alignment of the right knee. No fracture. Medial compartm ent predominant tricompartmental osteoarthritis of both knees with moderate joint space narrowing in the right and moderate to severe joint space narrowing at the left medial compartments. Additional mo derate joint space. The medial side of the patellofemoral compartment of the right knee. Small margin al osteophytes with relatively preserved joint space at lateral compartment of the right knee and lat eral and patellofemoral compartments of the left knee. No joint effusion/layering lipohemarthrosis. S oft tissues are unremarkable. IMPRESSION: 1. Tricompartmental osteoarthritis at both knees of moderate severity at the medial and patellofemora l compartments of the right knee and moderate to severe at the medial compartment of the left knee. Reviewed, dictated and finalized at location [facility]. 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 Tricompartmental osteoarthritis at both knees of moderate severity at the me dial and patellofemoral compartments of the right knee and moderate to severe a t the medial compartment of the left knee.
== END 2023-02-26 11:44 | disposition home or self-care (01) ==
LOC: ANHIMG 11:47
PROVIDERS: PCP Internal Medicine; Visit Provider Orthopaedic Surgery
DX: M17.11 Unilateral primary osteoarthritis, right knee (principal); M17.12 Unilateral primary osteoarthritis, left knee
CPT/HCPCS: 73564

== ENCOUNTER 2023-03-25 13:06 | Outpatient (CLI) | payer OTHER, SELFPAY ==
--- NOTE | ~2023-03-25 | XR_ITS ---
Clinical Indication: Cough PA and lateral views of the chest: Comparison: 09/17/2018 Findings: The lungs are clear, without evidence of focal consolidation or pleural effusion. Cardiome diastinal silhouette is within normal limits. Bones and soft tissues are unremarkable. Impression: Normal chest. Reviewed, dictated and finalized at [facility]. 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
== END 2023-03-25 13:07 | disposition home or self-care (01) ==
LOC: ANHIMG 13:07
PROVIDERS: PCP Internal Medicine; Visit Provider Internal Medicine
DX: R05.9 Cough, unspecified (principal); M54.9 Dorsalgia, unspecified
CPT/HCPCS: 71046

== ENCOUNTER 2023-04-09 08:55 | Outpatient (CLI) | payer OTHER, SELFPAY ==
[2023-04-09 09:33] LABS: Basophils Absolute Auto 0.1 K/mm3 (0.0-0.1); Basophils Percent Auto 0.8 % (0.2-1.2); Eosinophils Percent Auto 0.2 % (0-4.4); Hematocrit 42.8 % (37.0-47.0); Hemoglobin 13.2 g/dL (12.0-15.0); Immature Granulocyte Absolute 0.03 K/mm3 (0.00-0.031); Immature Granulocyte Percent A 0.3 % (0-0.5); Lymphocytes Absolute Auto 3.16 K/mm3 (0.9-3.2); Lymphocytes Percent Auto 34.9 % (18.3-44.2); Mean Corpuscular HGB Conc 30.8 g/dl (32-36); Mean Corpuscular Hemoglobin 27.5 pg (26-34); Mean Corpuscular Volume 89.2 fl (80-100); Mean Platelet Volume 9.7 fl (7.4-10.4); Monocytes Absolute Auto 0.8 K/mm3 (0.1-0.6); Monocytes Percent Auto 8.5 % (2.6-8.5); Neutrophils Percent Auto 55.3 % (45.5-73.1); Platelet Count Result 421 k/mm3 (150-375); Red Cell Distribution Width 14.3 % (11.5-14.5); White Blood Count 9.1 K/mm3 (4.5-10.0)
[2023-04-09 09:44] LABS: Alanine Aminotransferase 39 U/L (6-35); Albumin Level 4.1 g/dL (3.5-5.1); Alkaline Phosphatase 95 U/L (38-126); Anion Gap 5 mmol/L (8-16); Aspartate Amino Transferase 29 U/L (14-36); Bilirubin,Total 0.5 mg/dL (0.2-1.3); Blood Urea Nitrogen 18 mg/dL (7-17); Calcium 9.1 mg/dL (8.4-10.2); Carbon Dioxide 27 mmol/L (22-30); Chloride 107 mmol/L (98-107); Cholesterol 230 mg/dL (0-200); Estimated Glomerular Filt Rate > 60; Glucose 104 mg/dL (65-110); HDL Direct 38 mg/dL; Potassium 4.1 mmol/L (3.4-5.0); Sodium 139 mmol/L (137-145); Triglycerides 177 mg/dL (<150)
[2023-04-09 09:56] LABS: LDL Cholesterol Direct 141 mg/dL
[2023-04-09 10:03] LABS: Iron 77 ug/dL (37-170)
[2023-04-09 10:17] LABS: Percent Iron Saturation 21 % (20-50)
== END 2023-04-09 08:56 | disposition home or self-care (01) ==
LOC: ANHLAB 08:57
PROVIDERS: PCP Internal Medicine; Visit Provider Internal Medicine
DX: D64.9 Anemia, unspecified (principal); E53.8 Deficiency of other specified B group vitamins; E78.5 Hyperlipidemia, unspecified; R73.9 Hyperglycemia, unspecified; E61.1 Iron deficiency
CPT/HCPCS: 36415; 80053; 80061; 82607; 83540; 83550; 84443; 85025

== ENCOUNTER 2023-04-17 08:48 | Outpatient (CLI) | payer OTHER, SELFPAY ==
[2023-04-17 10:57] LABS: CRP 0.6 mg/dL (<1.0)
[2023-04-17 11:09] LABS: Rheumatoid Factor < 12.0 IU/ML (<12)
== END 2023-04-17 08:49 | disposition home or self-care (01) ==
PROVIDERS: PCP Internal Medicine; Visit Provider Internal Medicine
DX: M19.041 Primary osteoarthritis, right hand (principal); M19.042 Primary osteoarthritis, left hand
CPT/HCPCS: 36415; 86140; 86430

== ENCOUNTER 2023-10-14 15:05 | Outpatient (CLI) | payer OTHER, SELFPAY ==
--- NOTE | ~2023-10-14 | XR_ITS ---
EXAMINATION: XR_CERV2-3V_CR DATE: 10/14/2023 15:47 INDICATION: Neck pain. TECHNIQUE: 4 views of cervical spine on 5 radiographs were obtained. COMPARISON: None. FINDINGS: There is a 1 mm anterolisthesis of C4 on C5. There is mild kyphosis of lower cervical spine . There is 2 mm anterolisthesis of C7 on T1. Vertebral body heights are normal. There is mildly decre ased disc height at C3-C4 and C4-C5, moderately decreased disc height at C5-C6, and severely decrease d disc height at C6-C7. There is multilevel severe facet joint osteoarthritis. There is mild central canal stenosis at C5-C6 and C6-C7. No prevertebral soft tissue swelling. IMPRESSION: 1. Severe cervical spondylosis. Reviewed, dictated and finalized at location [facility].
== END 2023-10-14 15:06 | disposition home or self-care (01) ==
LOC: ANHIMG 15:09
PROVIDERS: PCP Internal Medicine; Visit Provider Internal Medicine
DX: M47.812 Spondylosis without myelopathy or radiculopathy, cervical region (principal); M54.2 Cervicalgia
CPT/HCPCS: 72040

== ENCOUNTER 2023-11-26 13:52 | Outpatient (CLI) | payer OTHER, SELFPAY ==
--- NOTE | ~2023-11-26 | XR_ITS ---
Right Knee Technique: AP, lateral, and sunrise views were obtained. Clinical History: Osteoarthritis Findings: No fracture or dislocation is seen. There is medial compartment narrowing with mild to mode rate tricompartmental osteophyte formation. Soft tissues are unremarkable. No joint effusion is seen. Impression: Moderate tricompartmental degenerative change. Reviewed, dictated and finalized at location . Impression: Moderate tricompartmental degenerative change.
--- NOTE | ~2023-11-26 | XR_ITS ---
XR knee LT min 4V 11/26/2023 14:15 Indication: Osteoarthritis Procedure: 4 views of the left knee Comparison: Comparison to multiple prior studies sequentially, with oldest reviewed study dated 03/07. Findings: There is severe tricompartment osteoarthritis, most advanced in the medial compartment. No fracture, subluxation or dislocation. No joint effusion. No foreign bodies. Impression: 1: Interval progression of severe osteoarthritis of the left knee. Reviewed, dictated and finalized at location [facility]. Impression: 1: Interval progression of severe osteoarthritis of the left knee.
== END 2023-11-26 13:53 | disposition home or self-care (01) ==
LOC: ANHIMG 13:54
PROVIDERS: PCP Internal Medicine; Visit Provider Orthopaedic Surgery
DX: M17.0 Bilateral primary osteoarthritis of knee (principal)
CPT/HCPCS: 73564

== ENCOUNTER 2023-12-16 08:00 | Outpatient (RCR) | payer OTHER, SELFPAY ==
--- NOTE | 2023-11-12 10:33 | PTOPEVAL1 ---
Assessment and note entered by Spencer Correa Evaluation Information Assessment Status Evaluation ICD-10 Condition Codes (PT) Cervicalgia M54.2 Onset 05/12/23 Subjective Information Pt. reports that pain in her neck began about 6 months ago. She recalls no incident, just gradual onset of pain. She describes pain through the neck and radiating into the shoulder blades. She states that her pain is constant. She reports that pain will wake her at night. She notices tingling into the arms on occasion that will radiate into her fingers. 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 She denies participation in any formal exercise. She states that she completes most house hold duties, despite her pain. She notices that she is slower with daily activities due to her pain. She reports that turning her neck is difficult. She reports that her goal for therapy is to decrease her pain and be able to to turn her head with less pain. Reported Pain Level Pain Score 6: Self Report Assessment PT Clinical Summary Pt. is a 68 year old female who enters the clinic with neck pain. X-ray reveals severe degenerative changes to the cervical spine. She presents with impaired scapular and proximal u.e. strength, impaired postural awareness, impaired cervical spine ROM and pain on this date. Continued skilled PT is indicated in order to improve these areas to allow the pt. to achieve improved comfort with IADL performance and improved sleep habits. Plan of Care Interventions Electrical Stimulation,Hot Pack/Cold Pack,Manual Therapy,Mechanical Traction,Neuro Re-education, Patient/Caregiver Educati,Therapeutic Activities, Therapeutic Exercise PT Services Indicated Yes Treatment Frequency and 2x/week x 10 visits Duration These treatments will address the objective and functional deficits as defined above. The patient will be advanced safely and appropriately in order for the patient to progress towards his/her prior level of function. Additional exercises will be introduced and as well as a comprehensive home exercise program upon discharge, if needed, ?to ensure carryover of functional gains achieved in the clinic. This treatment plan has been reviewed and agreement upon by the patient.
--- NOTE | 2023-11-12 10:41 | OPREHPOC ---
Outpatient Therapy Plan of Care This is a Multidisciplinary Plan of Care that may contain components documented by all disciplines (PT, OT, and ST.) PT Problem 1 PT Problem #1 Knowledge Deficit PT Goal 1 Goal / Goal Update Pt. will be independent with a HEP addressing strength and postural awareness Target Visit 2 PT Problem 2 PT Problem #2 Impaired Range of Motion PT Goal 1 Goal / Goal Update Pt. will achieve 70 degrees bilateral c-spine rotation to improve visual field with activities such as driving. Target Visit 10 PT Problem 3 PT Problem #3 Impaired Strength PT Goal 1 Goal / Goal Update Pt. will improve bilateral shoulder flexion and horizontal abduction strength to 5/5 in order to improve postural awareness. Target Visit 10 PT Problem 4 PT Problem #4 Impaired Functional Mobil PT Goal 1 Goal / Goal Update Pt. will report being able to sleep through the night without pain disturbance Pt. will present with less than 15% limitation on the NDI indicating significant functional improvement. Target Visit 10
--- NOTE | 2023-12-16 08:51 | PTOPDC ---
Assessment and note entered by Shaunna Cabezas, PT Discharge Report Assessment Status Discharge ICD-10 Condition Codes (PT) Cervicalgia M54.2 Onset 05/12/23 Subjective Information feel like a little better since coming for therapy but still having problems; want to stop treatment and follow up with ; will continue to do the exercises at home; Reported Pain Level Pain Score Self Report Additional Pain Score Comments pain range in the past week 4-710; headaches constantly; intermittent tingling to R and L fingers- all fingers; increase pain: any neck motions decrease pain: heat, advil dual; therapy helps feel better for the rest of the day sleeping--tolerance 2 hours at time at best--have pain in neck, hip, knees that awakens her discussed home stim unit and traction units at home for pain control; issued photo from catalog for traction units; educated on stim pad placement, time for treatment 10-15 min, up to 2-3x/day Assessment PT Clinical Summary Galilea has received 10 PT sessions. Compared to the initial evaluation: pain from 6-10/26 to 4-7; continues to have intermittent pain into R and L UE and constant headaches; self assessment Neck Disability Index rating from 48% to 54% limitation in activity level; cervical flexion, extension, rotation to R and L--all increase pain with limited ROM; education for HEP posture and pain management. The goals were partially achieved. Discharge PT. She is to continue with her HEP and follow up with dr, for possible: further imaging pain management and/or referral for neurosurgeon. Plan of Care PT Services Indicated No
== END 2023-12-16 10:35 | disposition home or self-care (01) ==
LOC: ANHPT 08:00
PROVIDERS: PCP Internal Medicine; Visit Provider Internal Medicine
DX: M54.2 Cervicalgia (principal)
CPT/HCPCS: 97012; 97014; 97035; 97110; 97140; 97161; 97530; G0283

== ENCOUNTER 2024-04-08 09:08 | Outpatient (CLI) | payer OTHER, SELFPAY ==
[2024-04-08 09:29] LABS: Basophils Absolute Auto 0.1 K/mm3 (0.0-0.1); Basophils Percent Auto 0.7 % (0.2-1.2); Eosinophils Percent Auto 0.2 % (0-4.4); Hematocrit 42.5 % (37.0-47.0); Hemoglobin 13.4 g/dL (12.0-15.0); Immature Granulocyte Absolute 0.02 K/mm3 (0.00-0.031); Immature Granulocyte Percent A 0.2 % (0-0.5); Lymphocytes Absolute Auto 2.65 K/mm3 (0.9-3.2); Mean Corpuscular HGB Conc 31.5 g/dl (32-36); Mean Corpuscular Hemoglobin 27.6 pg (26-34); Mean Corpuscular Volume 87.6 fl (80-100); Mean Platelet Volume 9.1 fl (7.4-10.4); Monocytes Absolute Auto 0.7 K/mm3 (0.1-0.6); Monocytes Percent Auto 8.1 % (2.6-8.5); Neutrophils Absolute Auto 4.9 K/mm3 (1.3-6.7); Neutrophils Percent Auto 58.8 % (45.5-73.1); Platelet Count Result 410 k/mm3 (150-375); Red Blood Count 4.85 M/mm3 (4.2-5.4); Red Cell Distribution Width 14.8 % (11.5-14.5); White Blood Count 8.3 K/mm3 (4.5-10.0)
[2024-04-08 09:41] LABS: Iron 74 ug/dL (37-170)
[2024-04-08 09:47] LABS: Alanine Aminotransferase 33 U/L (6-35); Albumin Level 4.1 g/dL (3.5-5.1); Alkaline Phosphatase 99 U/L (38-126); Anion Gap 9 mmol/L (4-12); Aspartate Amino Transferase 25 U/L (14-36); Bilirubin,Total 0.6 mg/dL (0.2-1.3); Blood Urea Nitrogen 16 mg/dL (7-17); Calcium 9.5 mg/dL (8.4-10.2); Carbon Dioxide 29 mmol/L (22-30); Chloride 105 mmol/L (98-107); Cholesterol 224 mg/dL (0-200); Estimated Glomerular Filt Rate > 60; Glucose 110 mg/dL (65-110); HDL Direct 46 mg/dL; Potassium 4.1 mmol/L (3.4-5.0); Sodium 143 mmol/L (137-145); Triglycerides 101 mg/dL (<150)
[2024-04-08 09:49] LABS: Hemoglobin A1C 6.3 % (<5.7)
[2024-04-08 09:51] LABS: Percent Iron Saturation 20 % (20-50)
--- OUTSIDE RECORDS SUMMARY | 2024-04-08 09:52 | XMS_ITS | Clinical Summary ---
Author Organization [facility] Address [address] [place] [address] Phone Care Team Providers Care It Corporate Recruiter Name Role Phone Roni, Samuel Ojeda DO Primary Care Provider [phone] Allergies No known active allergies Medications atorvastatin (LIPITOR) 10 MG Tablet TAKE 1 TABLET BY MOUTH EVERY DAY 90 Tab 0 08/05/2015 Active CARTIA XT 180 MG CAPSULE SR 24 HR TAKE 2 CAPSULES BY MOUTH EVERY DAY 60 Cap 0 02/22/2016 Active cyanocobalamin (VITAMIN B-12) 1000 MCG/ML Solution INJECT ONCE A MONTH 10 mL 0 03/21/2016 Active omeprazole (PRILOSEC) 40 MG CAPSULE DELAYED RELEASE TAKE 1 CAPSULE BY MOUTH DAILY 90 Cap 12/16/2016 Active Active Problems No known active problems Immunizations Immunization Administration Dates Next Due Covid-19, Mrna, Lnp-s, PF, 1 00 mcg/0.5 mL Dose (Moderna) 04/17/2020,03/20/2020 Influenza Vaccine greater than 3 yrs 02/16/2013 TDAP Vaccine 03/21/2011 Social History Tobacco Use Types Packs/Day Years Used Date Smoking Tobacco: Never Assessed Comments Unknown Sex and Gender Information Value Date Recorded Sex Assigned at Female 09/24/2023 12:42 PM CDT Legal Sex Female 9:33 PM CDT Gender Identity Female 09/24/2023 12:42 PM CDT Sexual Orientation Straight 09/24/2023 12 :42 PM CDT Plan of Treatment Health Maintenance Due Date Last Done Comments DEXA Bone Density 1955 Hepatitis C Virus (HCV) Screening 1955 Colonoscopy 1999 Colorectal Cancer Screening 1999 Cologuard 2004 Immunochemical Fecal Occult Blood 2004 Pneumococcal Immunization (5 0+ years) (1 of 1 - PCV) 2004 Zoster Immunization (1 of 2) 2004 Influenza Immunization (#1) 10/18/202311/16, 02/16/2013 SARS-COV-2 Immunization ( season) 2023 12/27/2021, 04/17/2020, 03/20/2020 Mammogram 09/21/2025 09/22/2023 Respiratory Syncytial Virus (RSV) Immunization (Adult) (1 - 1-dose 75+ series) 2029 DTaP/Tdap/Td Immunization Discontinued 03/21/2011 Hepatitis B Immunization Aged Out No longer eligible based on patient's age to complete this topic Meningococcal Immunization (ACWY) Aged Out No longer eligible based on patient's age to complete this topic Rotavirus Immunization Aged Out No lo nger eligible based on patient's age to complete this topic Procedures Procedure Name Priority Date/Time Associated Diagnosis Comments MIGUEL SCREENING BILATERAL DIGITAL W CAD W LESLEY Routine 09/22/2023 12:39 PM CDT Visit for screening mammogram from Last 3 Months or Most Recently Relevant to Health Maintenance Results * MIGUEL SCREENING BILATERAL DIGITAL W CAD W LESLEY (09/22/2023 12:39 PM CDT) Anatomical Region Laterality Modality breast Bilateral Mammography 09/22/2023 12:0 3 PM CDT Narrative 09/24/2023 8:32 AM CDT - MIGUEL SCREENING BILATERAL DIGITAL W CAD W LESLEY BILATERAL DIGITAL SCREENING MAMMOGRAM 3D/2D WITH CAD WITH MEDIOLATERAL OBLIQUE CRANIOCAUDAL: 09/22/2023 The study was acquired using digital technology and interpreted from soft copy. Current study was also evaluated with ICAD version 7.2. 2D digital mammographic views, as well as 3D digital tomosynthesis were performed in the CC and MLO projections. CLINICAL: Routine screening. Patient has no complaints. No personal history of cancer. Paternal aunt had breast cancer. Patient reports a new skin lesion in her medial right breast, marked with a mole marker. Her provider examined it and told her it was nothing to worry about. Technologist notes it appears to be a sebaceous cyst. COMPARISONS: Comparison is made to exams dated: 08/06/2022, 02/29/2020, 05/03/2021, 12/02/2018, and 12/20/2018 [facility]. BREAST TISSUE:The tissue of both breasts is heterogeneously dense. This may lower the sensitivity of mammography. FINDINGS: There are benign calcifications in the right breast. No significant masses, calcifications, or other findings are seen in either breast. There has been no significant interval change. IMPRESSION: BI-RAD 2 BENIGN There is no mammographic evidence of malignancy. A 1 year screening mammogram is recommended. A letter will be sent to the patient with these results. The patient will be entered into a reminder system with a target due date of 1 year for her next screening exam. Electronically signed by: Tabitha ashby/jocy:09/23/2023 16:20:07 Eye Specialist(s): RT Belle(Natasha)(M), [facility] letter sent: Normal Exam Reading location: [facility] BI-RADS: 2 Benign Procedure Note Tabitha Garcia MD - 09/24/2023 - MIGUEL SCREENING BILATERAL DIGITAL W CAD W LESLEY BILATERAL DIGITAL SCREENING MAMMOGRAM 3D/2D WITH CAD WITH MEDIOLATERAL OBLIQUE CRANIOCAUDAL: 09/22/2023 The study was acquired using digital technology and interpreted from soft copy. Current study was also evaluated with ICAD version 7.2. 2D digital mammographic views, as well as 3D digital tomosynthesis were performed in the CC and MLO projections. CLINICAL: Routine screening. Patient has no complaints. No personal history of cancer. Paternal aunt had breast cancer. Patient reports a new skin lesion in her medial right breast, marked with a mole marker. Her provider examined it and told her it was nothing to worry about. Technologist notes it appears to be a sebaceous cyst. COMPARISONS: Comparison is made to exams dated: 08/06/2022, 02/29/2020, 05/03/2021, 12/02/2018, and 12/20/2018 [facility]. BREAST TISSUE:The tissue of both breasts is heterogeneously dense. This may lower the sensitivity of mammography. FINDINGS: There are benign calcifications in the right breast. No significant masses, calcifications, or other findings are seen in either breast. There has been no significant interval change. IMPRESSION: BI-RAD 2 BENIGN There is no mammographic evidence of malignancy. A 1 year screening mammogram is recommended. A letter will be sent to the patient with these results. The patient will be entered into a reminder system with a target due date of 1 year for her next screening exam. Electronically signed by: Tabitha ashby/jocy:09/23/2023 16:20:07 Eye Specialist(s): RT Belle(R)(M), [facility] letter sent: Normal Exam Reading location: [facility] BI-RADS: 2 Benign us Slf Mammo Self Referred IMG MAMMO ORDERABLES Fin al Result from Last 3 Months or Most Recently Relevant to Health Maintenance Insurance MEDICARE C E[employer] Care Teams It Corporate Recruiter Relationship Specialty Start Date End Date Samuel Tamayo DO [address] [address] PCP - General Internal Medicine 09/22/23
--- OUTSIDE RECORDS SUMMARY | 2024-04-08 09:52 | XMS_ITS | Referral Summary ---
Author Organization [facility] Address [address] [place] [address] Care Team Providers Care Retail Special Event Associate Name Role Phone Silvio Day DO Primary Care Provider Source Comments [facility],non-owned Affiliates and Associated Physician Practices is amultiple site organization consisting of ambulatory clinics and hospital sitesin [place], [place], [place] and [place]. This disclosure is being madepursuant to the Care Everywhere program and may not contain all information available regarding this patient. Last updated 17.[facility] Allergies Active Allergy Reactions Criticality Noted Date Comments Codeine Rash Medium 01/23/2021 Medications * Be aware that medications may not be up to date on this document. Alwaysverify current medications with the patient. Medication Sig Dispensed Refills Start Date End Date Status dilTIAZem coated beads 24hr (CARDIZEM CD) 180 MG capsule Take 360 mg by mouth once daily 12/28/2020 Active omeprazole (PRILOSEC) 40 MG capsule Take 40 mg by mouth once daily 01/13/2021 Active tacrolimus (PROTOPIC) 0.1 % ointment 11/30/2020 Active aspirin (ASPIRIN) 81 MG chew tablet Take 81 mg by mouth once daily Active cyclobenzaprine (FLEXERIL) 5 MG tablet Take 5 mg by mouth nightly as needed Active CALCIUM PO Active nystatin (MYCOSTATIN) 675674 UNIT/GM ointmentIndications :Lichen sclerosus,Vulvar itching,Vulvar burning Use with the Triamcinolone ointment 0.1% every other day to vulvar skin 30 g 3 01/23/2021 Active triamcinolone acetonide (KENALOG) 0.1 % ointmentIndications :Lichen sclerosus,Vulvar itching,Vulvar burning Use with the nystatin ointment every other day to vulvar skin 30 g 3 01/23/2021 Active Active Problems No known active problems Social History Tobacco Use Types Packs/Day Years Used Date Smoking Tobacco: Never Smokeless Tobacco: Never Alcohol Use Standard Drinks/Week Comments Yes 0 (1 standard drink = 0.6 oz pur e alcohol) 1/month Sex and Gender Information Value Date Recorded Sex Assigned at Not on file Gender Identity Not on file Sexual Orientation Not on file Last Filed Vital Signs Vital Sign Reading Time Taken Comments Blood Pressure 140/80 01/23/2021 12:59 PM COLORIST Pulse - - Temperature - - Respiratory Rate - - Oxygen Saturation - - Inhaled Oxygen Concentration - - Weight 91.6 kg (202 lb) 01/23/2021 12:59 PM COLORIST Height 152.4 cm (5') 01/23/2021 12:59 PM COLORIST Body Mass Index 39.45 01/23/2021 12:59 PM COLORIST Plan of Treatment Not on file Care Teams Retail Special Event Associate Relationship Specialty Start Date End Date Silvio Day DO [address] [facility] [address] [place], [place] [id number] PCP - General 01/20/21
--- OUTSIDE RECORDS SUMMARY | 2024-04-08 09:52 | XMS_ITS | Clinical Summary ---
Author Organization [facility] Address [address] 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
--- OUTSIDE RECORDS SUMMARY | 2024-04-08 09:52 | XMS_ITS | Encounter Summary ---
Author Organization [facility] Address [address] [place] [address] Care Team Providers Care Package Delivery Room Service Runner Name Role Phone Stephanie Wood MD Primary Care Provider [phone] Silvio Day MD Primary Care Provider [phone] Encounter Details Date Type Department Care Team (Late st Contact Info) Description 06/18/2016 Orders Only [facility] ProviderAlice MD [address] [place] [address] Social History Tobacco Use Types Packs/Day Years Used Date Smoking Tobacco: Never Assessed Alcohol Use Standard Drinks/Week Comments No 0 (1 standard drink = 0.6 oz pur e alcohol) Comments Unknown Sex and Gender Information Value Date Recorded Sex Assigned at Not on file 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 Historical Provider [facility] [place] Final Result documented in this encounter Visit Diagnoses Not on filedocumented in this encounter Care Teams Package Delivery Room Service Runner Relationship Specialty [place] [address] [address] PCP - General 07/16/10 12/24/17 Silvio Day MD [address] [address] PCP - General Internal Medicine 12/25/17 documented as of this encounter
--- OUTSIDE RECORDS SUMMARY | 2024-04-08 09:52 | XMS_ITS | Encounter Summary ---
Author Organization [facility] Address 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
--- OUTSIDE RECORDS SUMMARY | 2024-04-08 09:52 | XMS_ITS | Referral Summary ---
Author Organization [facility] [address] Address [address] [place] [address] Care Team Providers Care Imaging Specialist Name Role Phone Silvio Day MD Primary Care Provider [phone] Allergies Active Allergy Reactions Criticality Noted Date Comments Codeine Other (See comments) High Reaction: unknown, Medications ergocalciferol (VITAMIN D2) 50,000 unit capsule take 1 capsule ([id number]) by ORAL route every week 12 4 0 Active nitroglycerin (NITROSTAT) 0.[address] 1 tablet (0.4MG) by sublingual route at the 1st sign of attack; may repeat every 5 min until relief; if pain persists after 3 tablets in 15 min, prompt medical attention is recommended 25 0 1 Active aspirin 81 mg chewable tablet chew 1 tablet by oral route every day 0 0 7 Active fluticasone-teena meterol (ADVAIR HFA) 115-21 mcg/actuation inhaler inhale 2 puff by inhalation route 2 times every day in the morning and evening 0 Inhaler 0 7 Active omeprazole (PriLOSEC) 40 mg capsule take 1 capsule by oral route every day before a meal 30 6 1 Active dilTIAZem XR (dilTIAZem CD) 240 mg 24 hr capsule take 1 capsule by oral route every day 30 3 1 Active calcium carbonate (CALCIUM 500) 1,250 MG (500 mg of elemental calcium) tablet take 1 by Oral route every day 0 0 7 Active rosuvastatin (CRESTOR) 10 mg tablet take 1 tablet (10MG) by ORAL route every day 30 6 0 Active ergocalciferol (VITAMIN D2) 50,000 unit capsule take 1 capsule ([id number]) by ORAL route every week 4 6 0 Active diltiazem (TIAZAC) 420 mg 24 hr capsule take 1 capsule by oral route every day 30 4 7 Active Active Problems Problem Noted Date Diagnosed Date Chronic cough 06/19/2016 Overview (07/11/2016): Chronic cough Dyslipidemia 06/19/2016 Overview (07/11/2016): Mixed dyslipidemia Chest pain 06/19/2016 Overview (07/11/2016): Chest pain in adult 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 Overview (07/11/2016): Spasmodic dysphonia Benign hypertension 06/19/2016 Overview (07/11/2016): HTN (hypertension), benign Paroxysmal supraventricular tachycardia 06/20/19 17 Overview (07/11/2016): PSVT (paroxysmal supraventricular tachycardia) Obstructive sleep apnea syndrome 06/19/2016 Overview (07/11/2016): IVAN (obstructive sleep apnea) Awareness of heartbeats 06/19/2016 Overview (07/11/2016): Palpitations Gastroesophageal reflux disease without esophagi tis 06/19/2016 Overview (07/11/2016): GERD without esophagitis Female proctocele without uterine prolapse 07/02 Overview (05/22/2016): Rectocele Hyperlipidemia 07/02/2013 Overview (05/23/2016): Hyperlipidemia Blood glucose abnormal 07/02/2013 Overview (05/22/2016): ABNORMAL GLUCOSE NEC Vitamin D deficiency 07/02/2013 Overview (05/24/2016): Vitamin D deficiency Social History Tobacco Use Types Packs/Day Years Used Date Smoking Tobacco: Never Alcohol Use Standard Drinks/Week Comments No 0 (1 standard drink = 0.6 oz pur e alcohol) Comments Unknown Sex and Gender Information Value Date Recorded Sex Assigned at Not on file Legal 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 Female 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 Gender Identity Not on file Sexual Orientation Not on file Last Filed Vital Signs Vital Sign Reading Time Taken Comments Blood Pressure 138/86 06/19/2016 12:08 PM CDT Pulse 84 06/19/2016 12:08 PM CDT Temperature - - Respiratory Rate - - Oxygen Saturation - - Inhaled Oxygen Concentration - - Weight 91.2 kg (201 lb) 06/19/2016 12:08 PM CDT Height 154.9 cm (5' 1 ) 06/19/2016 12:08 PM CDT Body Mass Index 37.98 06/19/2016 12:08 PM CDT Plan of Treatment Not on file Insurance [facility] H[facility]/PPO Address: [address] [address] [facility] H[facility]/PPO Address: [address] [address] [place] [address] Care Teams Imaging Specialist Relationship Specialty Start Date End Date Silvio Day MD [address] [facility] [address] [place] [address] PCP - General Internal Medicine 12/25/17
--- OUTSIDE RECORDS SUMMARY | 2024-04-08 09:52 | XMS_ITS | Patient Health Summary ---
Author Organization [facility] Address [address] [facility] [place] [address] Care Team Providers Care Electrical Designer Name Role Phone Silvio Day DO Primary Care Provider [phone] Note from [facility],non-owned Affiliates and Associated Physician Practices is amultiple site organization consisting of ambulatory clinics and hospital sitesin [place], [place], [place] and [place]. This disclosure is being madepursuant to the Care Everywhere program and may not contain all information available regarding this patient. Last updated 17.[facility] Allergies * Codeine(Rash) -Medium Criticality Medications * Be aware that medications may not be up to date on this document. Alwaysverify current medications with the patient. * dilTIAZem coated beads 24hr (CARDIZEM CD) 180 MG capsule(Started 12/28/2020) Take 360 mg by mouth once daily * omeprazole (PRILOSEC) 40 MG capsule(Started 01/13/2021) Take 40 mg by mouth once daily * tacrolimus (PROTOPIC) 0.1 % ointment(Started 11/30/2020) * aspirin (ASPIRIN) 81 MG chew tablet Take 81 mg by mouth once daily * cyclobenzaprine (FLEXERIL) 5 MG tablet Take 5 mg by mouth nightly as needed * CALCIUM PO * nystatin (MYCOSTATIN) 104966 UNIT/GM ointment(Started 01/23/2021) Use with the Triamcinolone ointment 0.1% every other day to vulvar skin 3 refills by 01/23/2022 * triamcinolone acetonide (KENALOG) 0.1 % ointment(Started 01/23/2021) Use with the nystatin ointment every other day to vulvar skin 3 refills by 01/23/2022 Active Problems No known active problems Social [...] Comments Blood Pressure 140/80 01/23/2021 12:59 PM NETWORK ASSOCIATE Pulse - - Temperature - - Respiratory Rate - - Oxygen Saturation - - Inhaled Oxygen Concentration - - Weight 91.6 kg (202 lb) 01/23/2021 12:59 PM NETWORK ASSOCIATE Height 152.4 cm (5') 01/23/2021 12:59 PM NETWORK ASSOCIATE Body Mass Index 39.45 01/23/2021 12:59 PM NETWORK ASSOCIATE Procedures * CULTURE YEAST(Performed 01/23/2021) Performed for Lichen sclerosus, Vulvar itching, Vulvar burning * DERMATOPATHOLOGY(Performed 04/23/2010) Results * CULTURE YEAST (01/23/2021 12:53 PM NETWORK ASSOCIATE) Culture Yeast with ID [facility] Comment: CULTURE, YEAST, W/IDENTIFICATION Micro Number: [id number] Test Status: Final Specimen Source: Vulva Specimen Quality: Adequate Result: No fungal growth at 2 Weeks Test Performed at: [facility] [address] PARRIS SELF MD Microbiology ENTIRE VULVA / Unknown 01/23/2021 12:53 PM NETWORK ASSOCIATE 01/24/2021 2:47 AM NETWORK ASSOCIATE Cheryl Rasmussen APRN-[facility] - MICRO BIOLOGY ORDERABLES [address] [address] * PATHOLOGY TISSUE FOR DERMATOLOGY (04/23/2010 12:00 AM NETWORK ASSOCIATE) Result CASE: [id number] PATIENT: HARINDER HAWK PATHOLOGIC DIAGNOSIS: Right posterior leg: HYPERPLASTIC (HYPERTROPHIC) ACTINIC KERATOSIS, EXTENDING TO THE BASE OF THE SPECIMEN (see microscopic description and comment) CLINICAL DATA: VV, ISK, SCC. GROSS DESCRIPTION: Received is one formalin filled container labeled with the patient's name and designated right posterior leg. The specimen consists of a shave biopsy measuring 5x4x2 mm. Jar 0. MICROSCOPIC DESCRIPTION: There is hyperkeratosis alternating with parakeratosis. There is epidermal hyperplasia with disorderly maturation of keratinocytes with nuclear pleomorphism confined to the lower half of the epidermis. This process extends to the base of the specimen. Additional deeper sections were obtained and reviewed. COMMENT: A squamous cell carcinoma cannot be ruled out. Final Diagnosis performed by Christy Mckee M.D. Electronically signed 04/30/2010 6:33:40PM [facility] Comment: Performed at: Dermatopathology Laboratory [facility] - Department of Dermatology [address] [place] [address], [address] [place] [address] Phone number: [phone] Toll Free: [phone] FAX: [phone] 04/23/2010 04/29/2010 Issac Small MD LAB - PATHOLOGY/CYTO LOGY ORDERABLES [facility] [address] [place] [address]. 5th Floor Lab [address] [phone] Care Teams Electrical Designer Relationship Specialty Start Date End Date Silvio Day DO [address] [facility] [address] [facility] [address] [place] [address] PCP - General 01/20/21
--- OUTSIDE RECORDS SUMMARY | 2024-04-08 09:52 | XMS_ITS | Clinical Summary ---
Author Organization [facility] Address [address] [place] [address] Care Team Providers Care Offset Proof Press Operator Name Role Phone Silvio Day DO Primary Care Provider [phone] Source Comments [facility],non-owned Affiliates and Associated Physician Practices is amultiple site organization consisting of ambulatory clinics and hospital sitesin [place], [place], [place] and [place]. This disclosure is being madepursuant to the Care Everywhere program and may not contain all information available regarding this patient. Last updated 17.[facility] Allergies Active Allergy Reactions Criticality Noted Date [...] needed Active CALCIUM PO Active nystatin (MYCOSTATIN) 243325 UNIT/GM ointmentIndications :Lichen sclerosus,Vulvar itching,Vulvar burning Use with the Triamcinolone ointment 0.1% every other day to vulvar skin 30 g 3 01/23/2021 Active triamcinolone acetonide (KENALOG) 0.1 % ointmentIndications :Lichen sclerosus,Vulvar itching,Vulvar burning Use with the nystatin ointment every other day to vulvar skin 30 g 3 01/23/2021 Active Active Problems No known active problems Family History Medical History Relation Name Comments CAD (Coronary Artery Disease) Father Diabetes - Type 2 Father Hypertension Father None Known Maternal Grandfather CAD (Coronary Artery Disease) Maternal Grandmother Other Mother rico's dx Alcohol abuse Paternal Grandfather None Known Paternal Grandmother DVT - Deep Vein Thrombosis Sister Relation Name Status Comments Father Maternal Grandfather Maternal Grandmother Mother Paternal Grandfather Paternal Grandmother Sister Social History Tobacco Use Types Packs/Day Years [...] Comments Blood Pressure 140/80 01/23/2021 12:59 PM FURNACE ATTENDANT Pulse - - Temperature - - Respiratory Rate - - Oxygen Saturation - - Inhaled Oxygen Concentration - - Weight 91.6 kg (202 lb) 01/23/2021 12:59 PM FURNACE ATTENDANT Height 152.4 cm (5') 01/23/2021 12:59 PM FURNACE ATTENDANT Body Mass Index 39.45 01/23/2021 12:59 PM FURNACE ATTENDANT Plan of Treatment Health Maintenance Due Date Last Done Comments BONE DENSITY TESTING 1954 COLOGUARD (AGES 45-75) - COLON CA SCREENING 1954 COLON MONITORING 1954 COLONOSCOPY - COLON CA SCREENING 1954 CT COLONOGRAPHY - COLON CA SCREENING 1954 Colorectal Cancer Screening 1954 FIT - COLON CA SCREENING 1954 FLEX SIG - COLON CA SCREENING 1954 LIPID TESTING 1954 HEPATITIS C SCREENING 03/23/1972 DTAP/TDAP/TD VACCINES (1 - Tdap) 1973 PNEUMOCOCCAL VACCINE 50+ (1 of 1 - PCV) 2004 ZOSTER VACCINE (1 of 2) 2004 SCREENING FOR DIABETES 01/23/2021 MAMMOGRAM 01/16/2022 01/17/2020 (Done Outside Per Patient) COVID-19 VACCINE (3 - 2023-2 5 season) 2023 04/17/2020, 03/20/2020 INFLUENZA VACCINE (#1) 2023 02/16/2013 DEPRESSION SCREENING 02/17/2024 MEDICARE AWV CALENDAR YEAR 2024 Respiratory Syncytial Virus (RSV) Vaccine Pt: or over 60 yrs (1 - 1-dose 75+ series) 2029 HEPATITIS B VACCINE Aged Out No longe r eligible based on patient's age to complete this topic HIB VACCINE Aged Out No longer eligi ble based on patient's age to complete this topic HPV VACCINE Aged Out No longer eligi ble based on patient's age to complete this topic MENINGOCOCCAL (Group B) VACCINE Aged Out No longer eligible based on patient's age to complete this topic MENINGOCOCCAL VACCINE Aged Out No vicky herrera eligible based on patient's age to complete this topic Care Teams Offset Proof Press Operator Relationship Specialty Start Date End Date Silvio Day DO [address] [place] [address] PCP - General 01/20/21
--- OUTSIDE RECORDS SUMMARY | 2024-04-08 09:52 | XMS_ITS | Clinical Summary ---
Author Organization [facility] [address] Address [address] [place] [address] Care Team Providers Care Aircraft Structural Design Engineer Name Role Phone Silvio Day MD Primary Care Provider [phone] Allergies Active Allergy Reactions Criticality Noted Date Comments Codeine Other (See comments) High Reaction: unknown, Medications ergocalciferol (VITAMIN D2) 50,000 unit capsule take 1 capsule ([id number]) by ORAL route every week 12 4 [...] D2) 50,000 unit capsule take 1 capsule ([id number]) by ORAL route every week 4 6 [...] deficiency 07/02/2013 Overview (05/24/2016): Vitamin D deficiency Surgical History Surgery Date Site/Laterality Comments CHOLECYSTECTOMY Cholecystectomy OTHER SURGICAL HISTORY 4 breast bx- '06 last one (lumpectomy): BX done 3 in [place] and 1 at [facility] OTHER SURGICAL HISTORY uterine Fobroids, adenomyosis and benign endometrial polyps: VARUN (ovaries remain) OTHER SURGICAL HISTORY Bladder prolapse: Bladder suspension OTHER SURGICAL HISTORY Ovarian cyst-1.9 cm simple cyst: observed Medical History Medical History Date Comments Hx Other Medical 4 breast bx- '0 6 last one (lumpectomy) Hx Other Medical Rectocele Hx Other Medical L shoulder Repa ir Hx Other Medical 1996 uterine Fobroid s, adenomyosis and benign endometri Hx Other Medical 1996 Bladder prolaps e Hx Other Medical 2006 Ovarian cyst-1. 9 cm simple cyst Family History Medical History Relation Name Comments Coronary artery disease Father 2 Matilda nary artery disease; Diabetes type II Father 2 Diabetes -T ype 2; Stroke Father 2 Stroke; Cause o f : Stroke Breast cancer Father's Sister Cancer -davide ast; Other Mother 2 Phill's Disea se; Cause of : [place]'s Disease Hypertension Sister Hypertension; Other Sister thyroid; Relation Name Status Comments Father 1 (Age 88) Father 2 Father's Sister Mother 1 (Age 30) Mother 2 Sister Social History Tobacco Use Types Packs/Day Years Used Date Smoking Tobacco: Never Alcohol Use Standard Drinks/Week Comments No 0 (1 standard drink = 0.6 oz pur e alcohol) Comments Unknown Sex and Gender Information Value Date Recorded Sex Assigned at Not on file 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
[2024-04-08 10:00] LABS: LDL Cholesterol Direct 138 mg/dL
[2024-04-08 10:05] LABS: Vitamin D 25 Hydroxy 70.3 ng/mL
== END 2024-04-08 09:09 | disposition home or self-care (01) ==
PROVIDERS: PCP Internal Medicine; Visit Provider Internal Medicine
DX: E78.5 Hyperlipidemia, unspecified (principal); I10 Essential (primary) hypertension; R73.9 Hyperglycemia, unspecified; R53.83 Other fatigue; E53.8 Deficiency of other specified B group vitamins; E61.1 Iron deficiency; M85.80 Other specified disorders of bone density and structure, unspecified site
CPT/HCPCS: 36415; 80053; 80061; 82306; 82607; 83036; 83540; 83550; 85025

== ENCOUNTER 2024-08-29 15:04 | Outpatient (CLI) | payer OTHER, SELFPAY ==
--- NOTE | ~2024-08-29 | CT_ITS ---
EXAMINATION: CT_LELTCWO_CT DATE: 08/29/2024 15:28 INDICATION: Unilateral primary osteoarthritis of the left knee for preoperative planning TECHNIQUE: High resolution computed tomography (CT) of the left lower extremity from the hip through the ankle was performed without intravenous contrast. Additional sagittal and coronal reconstructions were performed. Automated exposure control and iterative reconstruction technique were employed. The dose-length product was 1723.17 mGy-cm. COMPARISON: None FINDINGS: Bone alignment is normal. No fracture or suspected osteonecrosis. Polyarticular osteoarthritis includ ing tricompartmental osteoarthritis at the left knee, severe in the medial compartment which is maryse r appreciated on the prior weightbearing imaging. Small left knee joint effusion. Mild osteoarthritis at the left hip and multiple joints at the left foot and ankle. There are small heterotopic ossicles at the tip of the medial malleolus consistent with sequela of chronic deltoid ligament sprain. No le ft hip or ankle joint effusion. Moderate osteitis pubis. Mild diverticulosis along the visualized sig moid colon. The uterus is not identified and has likely been surgically resected. No free fluid in th e pelvis. Mildly prominent distal left common iliac chain lymph node measuring 1 cm in maximal short axis diameter which is unchanged since 09/01/2022, likely reactive. No other pathologically enlarged p elvic or left inguinal lymphadenopathy. Left lower limb musculature is unremarkable. IMPRESSION: 1. Severe medial compartment predominant tricompartmental osteoarthritis at the left knee. Reviewed, dictated and finalized at location A.
--- OUTSIDE RECORDS SUMMARY | 2024-08-29 15:08 | XMS_ITS | Clinical Summary ---
Author Organization [facility] Address [address] [place] [address] Phone Care Team Providers Care Bar Tacker Name Role Phone Roni, Samuel Ojeda DO Primary Care Provider [phone] Allergies No known active allergies Medications atorvastatin [...] 1954 Hepatitis C Virus (HCV) Screening 1954 Cologuard 1999 Colonoscopy 1999 Colorectal Cancer Screening 1999 Immunochemical Fecal Occult Blood 1999 Pneumococcal Immunization (5 0+ years) (1 of 1 - PCV) 2004 Zoster Immunization (1 of 2) 2004 SARS-COV-2 Immunization (4 - 2023- season) 2023 12/27/2021, 04/17/2020, 03/20/2020 Mammogram 09/21/2024 09/22/2023 Influenza Immunization (#1) 10/17/202411/16, 02/16/2013 Respiratory Syncytial Virus (RSV) Immunization (Adult) (1 - 1-dose 75+ series) 2029 DTaP/Tdap/Td Immunization Discontinued 03/21/2011 Hepatitis B Immunization Aged Out No longer eligible based on patient's age to complete this topic Human Papillomavirus (HPV) Immunization Aged Out No longer eligible based [...] dated: 08/06/2022, 02/29/2020, 05/03/2021, 12/02/2018, and 12/20/2018 [facility]. BREAST TISSUE:The tissue of both breasts [...] exam. Electronically signed by: Tabitha ashby/jocy:09/23/2023 16:20:07 Deputy District Customs Director(s): RT Belle(R)(M), [facility] letter sent: Normal Exam Reading location: [facility] BI-RADS: 2 Benign Procedure Note Tabitha Garcia [...] dated: 08/06/2022, 02/29/2020, 05/03/2021, 12/02/2018, and 12/20/2018 [facility]. BREAST TISSUE:The tissue of both breasts [...] next screening exam. Electronically signed by: Tabitha Garcia M.D. ab/jeremyrad:09/23/2023 16:20:07 Deputy District Customs Director(s): RT Belle(R)(M), [facility] letter sent: Normal Exam Reading location: [facility] BI-RADS: 2 Benign us Slf Mammo Self Referred IMG MAMMO ORDERABLES Fin al Result from Last 3 Months or Most Recently Relevant to Health Maintenance Insurance Care Teams Bar Tacker Relationship Specialty Start Date End Date Samuel Tamayo DO [address] [address] (work) PCP - General Internal Medicine 09/22/23
--- OUTSIDE RECORDS SUMMARY | 2024-08-29 15:08 | XMS_ITS | Encounter Summary ---
Author Organization [facility] Address 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
--- OUTSIDE RECORDS SUMMARY | 2024-08-29 15:08 | XMS_ITS | Referral Summary ---
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 Gender Identity Not on file Sexual Orientation Not on file Last Filed Vital Signs Vital Sign Reading Time Taken Comments Blood Pressure 138/86 06/19/2016 12:08 PM CDT Pulse 84 06/19/2016 12:08 PM CDT Temperature - - Respiratory Rate - - Oxygen Saturation - - Inhaled Oxygen Concentration - - Weight 91.2 kg (201 lb) 06/19/2016 12:08 PM CDT Height 154.9 cm (5' 1) 06/19/2016 12:08 PM CDT Body Mass Index 37.98 06/19/2016 12:08 PM CDT Plan of Treatment Not on file Insurance [facility] Care Teams Animal Husbandman Relationship Specialty Start Date End Date Silvio Day MD [address] [facility] [address] [place] [address] PCP - General Internal Medicine 12/25/17
--- OUTSIDE RECORDS SUMMARY | 2024-08-29 15:08 | XMS_ITS | Clinical Summary ---
Author Organization [facility] Address [address] [facility] [facility] [place] [address] Care Team Providers Care Supervisor Respiratory Name Role Phone Silvio Day DO Primary Care Provider Source Comments [facility],non-owned Affiliates and Associated Physician Practices is amultiple site organization consisting of ambulatory clinics and hospital sitesin [place], [place], [place] and [place]. This disclosure is being madepursuant to the Care Everywhere program and may not contain all information available regarding this patient. Last updated 17.[facility] Allergies Active Allergy Reactions Criticality Noted Date Comments Codeine Rash Medium 01/23/2021 Medications * Be aware that medications may not be up to date on this document. Alwaysverify current medications with the patient. dilTIAZem coated beads 24hr (CARDIZEM CD) 180 MG capsule Take 360 mg by mouth once daily 1 Active omeprazole (PRILOSEC) 40 MG capsule Take 40 mg by mouth once daily 1 Active tacrolimus (PROTOPIC) 0.1 % ointment 1 Active aspirin (ASPIRIN) 81 MG chew tablet Take 81 mg by mouth once daily Active cyclobenzaprin e (FLEXERIL) 5 MG tablet Take 5 mg by mouth nightly as needed Active CALCIUM PO Active nystatin (MYCOSTATIN) 641474 UNIT/GM ointmentIndica tions:Lichen sclerosus,Vulv ar itching,Vulvar burning Use with the Triamcinolone ointment 0.1% every other day to vulvar skin 30 g 3 1 Active triamcinolone acetonide (KENALOG) 0.1 % ointmentIndica tions:Lichen sclerosus,Vulv ar itching,Vulvar burning Use with the nystatin ointment every other day to vulvar skin 30 g 3 1 Active Active Problems No known active problems [...] = 0.6 oz pur e alcohol) 1/month Comments Unknown Sex and Gender Information Value Date Recorded Sex Assigned at Not on file Legal Sex Female 6:05 AM CORK INSULATION INSTALLER Gender Identity Not on file Sexual Orientation Not on file Last Filed Vital Signs Vital Sign Reading Time Taken Comments Blood Pressure 140/80 01/23/2021 12:59 PM CORK INSULATION INSTALLER Pulse - - Temperature - - Respiratory Rate - - Oxygen Saturation - - Inhaled Oxygen Concentration - - Weight 91.6 kg (202 lb) 01/23/2021 12:59 PM CORK INSULATION INSTALLER Height 152.4 cm (5') 01/23/2021 12:59 PM CORK INSULATION INSTALLER Body Mass Index 39.45 01/23/2021 12:59 PM CORK INSULATION INSTALLER Plan of Treatment Health Maintenance Due Date [...] - 2023-2 5 season) 2023 04/17/2020, 03/20/2020 DEPRESSION SCREENING 02/17/2024 INFLUENZA VACCINE (#1) 2024 02/16/2013 Respiratory Syncytial Virus (RSV) Vaccine Pt: or [...] complete this topic MENINGOCOCCAL (Group B) VACCINE SHARED DECISION-MAKING Aged Out No longer eligible based on patient's age to complete this topic MENINGOCOCCAL GROUPS A/C/Y/W VACCINE Aged Out No longer eligible based on patient's age to complete this topic Insurance [employer] Care Teams Supervisor Respiratory Relationship Specialty Start Date End Date Silvio Day DO [address] [address] [place] [address] PCP - General 01/20/21
--- OUTSIDE RECORDS SUMMARY | 2024-08-29 15:08 | XMS_ITS | Clinical Summary ---
Author Organization [facility] [address] Address [address] [place] [address] Care Team Providers Care Endocrinology Nurse Name Role Phone Silvio Day MD Primary Care Provider [phone] Allergies Active Allergy Reactions Criticality Noted Date Comments Codeine Other (See comments) High Reaction: unknown, Medications ergocalciferol (VITAMIN D2) 50,000 unit capsule take 1 capsule ([id number]) by ORAL route every week 12 4 [...] D2) 50,000 unit capsule take 1 capsule ([id number]) by ORAL route every week 4 6 [...] last one (lumpectomy): BX done 3 in [place] and 1 at [facility] OTHER SURGICAL HISTORY uterine Fobroids, adenomyosis and [...] Sister Cancer -davide ast; Other Mother 2 [place]'s Disea se; Cause of : [place]'s Disease Hypertension Sister Hypertension; Other Sister thyroid; [...] on file 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
--- OUTSIDE RECORDS SUMMARY | 2024-08-29 15:08 | XMS_ITS | Clinical Summary ---
Author Organization [facility] Address [address] 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
--- OUTSIDE RECORDS SUMMARY | 2024-08-29 15:08 | XMS_ITS | Encounter Summary ---
Author Organization [facility] Address [address] [facility] [address] [place] [address] Care Team Providers Care Imaging Administrator Name Role Phone Stephanie Wood MD Primary Care Provider [phone] Silvio Day MD Primary Care Provider [phone] Encounter Details Date Type Department Care Team (Late st Contact Info) Description 06/18/2016 Orders Only [facility] ProviderAlice MD [address] [place] [address] Social History Tobacco Use Types Packs/Day Years Used Date Smoking Tobacco: Never Assessed Alcohol Use Standard Drinks/Week Comments No 0 (1 standard drink = 0.6 oz pur e alcohol) Comments Unknown Sex and Gender Information Value Date Recorded Sex Assigned at Not on file 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
== END 2024-08-29 15:05 | disposition home or self-care (01) ==
PROVIDERS: PCP Internal Medicine; Visit Provider Orthopaedic Surgery
DX: M17.12 Unilateral primary osteoarthritis, left knee (principal)
CPT/HCPCS: 73700

== ENCOUNTER 2024-09-01 11:15 | Outpatient (RCR) | payer OTHER, SELFPAY ==
--- NOTE | 2024-07-27 16:29 | OPREHPOC ---
Outpatient Therapy Plan of Care This is a Multidisciplinary Plan of Care that may contain components documented by all disciplines (PT, OT, and ST.) PT Problem 1 PT Problem #1 Knowledge Deficit PT Goal 1 Goal / Goal Update Patient to demonstrate independence with HEP for improved self-reliance of symptom management. Target Visit 6 PT Problem 2 PT Problem #2 Pain PT Goal 1 Goal / Goal Update Patient to decrease subjective reports of pain to <4/10 with transitional movements. Target Visit 6 PT Problem 3 PT Problem #3 Impaired Endurance PT Goal 1 Goal / Goal Update Patient to improve distance ambulated during 2MWT from 200 feet to 300 feet to demonstrate an improvement in ADL endurance. Target Visit 12 PT Problem 4 PT Problem #4 Impaired Strength PT Goal 1 Goal / Goal Update 1. Patient to perform 5xSTS from 26 sec to 18 sec to demonstrate an increase in B LE functional strength. 2. Patient to demonstrate R knee strength >=4/5 for improved stability prior to upcoming surgery Target Visit 12
--- NOTE | 2024-07-27 16:30 | PTOPEVAL1 ---
Assessment and note entered by Lashonda Macias, PT Evaluation Information Assessment Status Evaluation Diagnosis unilateral primary osteoarthritis of L knee ICD-10 Condition Codes (PT) Pain in left knee M25.562 Onset chronic >2 years Subjective Information Pt reports her L knee has gotten to be unbearable with walking, sitting, and standing. She is needing 12 visits of PT prior to insurance authorization for a TKA. She has been receiving steroid injections to her knee for greater than 2 years with diminishing benefit. At her most recent ortho visit they decided she needs to get her knee replaced because of the increase in arthritis and limitations in function. 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 She reports difficulty with stairs, no longer goes to the lower level of her home. She reports the pain is on the inside and front of her joint but it care radiate when she gets the clicking and grinding. Reported Pain Level Pain Score 0: Self Report Assessment PT Clinical Summary Pt is a 69 year old female who presents to physical therapy for pre-operative therapy prior to scheduling a L TKA. Pt demonstrates B LE weakness R>L, pain with transitional movements, decreased mobility, gait deficit, and decreased endurance that limit their ability to perform ADLs . Pt will benefit from skilled physical therapy to address the above listed deficits and return to PLOF. HEP instructed and written handout provided, EX tolerated well with no adverse effects to note post-session. Pt was educated on importance of adherence to HEP. Pt was also educated on anatomy, prognosis, home modalities, and PT POC. Plan of Care Interventions Aquatic Therapy,Electrical Stimulation,Gait Training,Hot Pack/Cold Pack,Intermittent Compression Pump,Manual Therapy,Neuro Re-education ,Therapeutic Activities,Therapeutic Exercise PT Services Indicated Yes Treatment Frequency and 2x/wk for 12 sessions Duration These treatments will address the objective and functional deficits as defined above. The patient will be advanced safely and appropriately in order for the patient to progress towards his/her prior level of function. Additional exercises will be introduced and as well as a comprehensive home exercise program upon discharge, if needed, ?to ensure carryover of functional gains achieved in the clinic. This treatment plan has been reviewed and agreement upon by the patient.
--- NOTE | 2024-08-22 07:37 | PCPTNOTE ---
Cancelled d/t work conflict, per front office. AKS
--- NOTE | 2024-09-02 15:34 | PCPTNOTE ---
Ms. Elder has currently undergone 6 visits of therapy for pre operative consideration of total knee replacement. During this time she demonstrates functional knee ROM of 0-122 degrees consistently and good volitional muscle engagement. Her greatest limitation at this time has been her functional pain due to structural issues within the knee. She has consistently been around a 5-6/10 on pain scale which is majority of the time increased with activity including ambulation and exercise. I believe that the patient is best suited for moving forward with total knee arthroplasty at this time, if Dr. Barragan is in agreement, given her consistent pain levels and gait deviation due to structural knee issues.
--- NOTE | 2024-09-05 11:24 | PCPTNOTE ---
Cancelled, schedule conflict per front office. AKS
--- NOTE | 2024-09-12 08:23 | PCPTNOTE ---
pt cancelled, no future visits scheduled at this time
--- NOTE | 2024-10-05 09:56 | PTOPDC ---
Assessment and note entered by Lashonda Macias, PT Evaluation Information Assessment Status Discharge - Pt Not Present Diagnosis unilateral primary osteoarthritis of L knee ICD-10 Condition Codes (PT) Pain in left knee M25.562 Onset chronic >2 years Subjective Information Pt missed 3 appts in current POC, nothing else scheduled. Assessment PT Clinical Summary Note entered on 09/02 stating pt would benefit from cont. with operative treatment at this time. Pt to DC from PT this date. Plan of Care PT Services Indicated Yes
== END 2024-10-05 11:55 | disposition home or self-care (01) ==
LOC: ANHPT 11:15
PROVIDERS: PCP Internal Medicine; Visit Provider Orthopaedic Surgery
DX: M54.2 Cervicalgia (principal); M47.812 Spondylosis without myelopathy or radiculopathy, cervical region; M79.12 Myalgia of auxiliary muscles, head and neck
CPT/HCPCS: 97014; 97110; 97140; 97161; 97530; G0283

== ENCOUNTER 2024-10-04 07:40 | Outpatient (CLI) | payer OTHER, SELFPAY ==
--- OUTSIDE RECORDS SUMMARY | 2024-10-04 07:51 | XMS_ITS | Encounter Summary ---
Author Organization [facility] Address 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
--- OUTSIDE RECORDS SUMMARY | 2024-10-04 07:51 | XMS_ITS | Clinical Summary ---
Author Organization [facility] Address [address] [place] [address] Care Team Providers Care Lead Manufacturing Engineer Name Role Phone Silvio Day DO Primary Care Provider Source Comments [facility],non-owned Affiliates and Associated Physician Practices is amultiple site organization consisting of ambulatory clinics and hospital sitesin [place], [place], [place] and [place]. This disclosure is being madepursuant to the Care Everywhere program and may not contain all information available regarding this patient. Last updated 17.[facility] Allergies Active Allergy Reactions Criticality Noted Date [...] needed Active CALCIUM PO Active nystatin (MYCOSTATIN) 564583 UNIT/GM ointmentIndica tions:Lichen sclerosus,Vulv ar itching,Vulvar burning [...] on file Legal Sex Female 6:05 AM COAL WHEELER Gender Identity Not on file Sexual Orientation Not on file Last Filed Vital Signs Vital Sign Reading Time Taken Comments Blood Pressure 140/80 01/23/2021 12:59 PM COAL WHEELER Pulse - - Temperature - - Respiratory Rate - - Oxygen Saturation - - Inhaled Oxygen Concentration - - Weight 91.6 kg (202 lb) 01/23/2021 12:59 PM COAL WHEELER Height 152.4 cm (5') 01/23/2021 12:59 PM COAL WHEELER Body Mass Index 39.45 01/23/2021 12:59 PM COAL WHEELER Plan of Treatment Health Maintenance Due Date [...] this topic Insurance [employer] Care Teams Lead Manufacturing Engineer Relationship Specialty Start Date End Date Silvio Day DO [address] [facility] [address] [place] [address] PCP - General 01/20/21
--- OUTSIDE RECORDS SUMMARY | 2024-10-04 07:51 | XMS_ITS | Clinical Summary ---
Author Organization [facility] [place] [address] Address [address] [place] [address] Care Team Providers Care Hair Stylist Name Role Phone Silvio Day MD Primary Care Provider [phone] Allergies Active Allergy Reactions Criticality Noted Date Comments Codeine Other (See comments) High Reaction: unknown, Medications ergocalciferol (VITAMIN D2) 50,000 unit capsule take 1 capsule ([id number]) by ORAL route every week 12 4 [...] D2) 50,000 unit capsule take 1 capsule (60331DSWIB) by ORAL route every week 4 6 [...] last one (lumpectomy): BX done 3 in [place] and 1 at [facility] [place] OTHER SURGICAL HISTORY uterine Fobroids, adenomyosis and [...] 2 Phill's Disea se; Cause of : Phill's Disease Hypertension Sister Hypertension; Other Sister thyroid; [...] on file Legal Sex Female 8:33 PM MENTAL HEALTH AIDE Gender Identity Not on file Sexual Orientation [...] Plan of Treatment Not on file Insurance [facility] Care Teams Hair Stylist Relationship Specialty Start Date End Date Silvio Day MD [address] [facility] [address] [place] [address] PCP - General Internal Medicine 12/25/17
--- OUTSIDE RECORDS SUMMARY | 2024-10-04 07:51 | XMS_ITS | Clinical Summary ---
Author Organization [facility] Address [address] [place] [address] Phone Care Team Providers Care Laundry Assistant Name Role Phone Roni, Samuel Ojeda DO Primary Care Provider [phone] Allergies No known active allergies Medications atorvastatin [...] dated: 08/06/2022, 02/29/2020, 05/03/2021, 12/02/2018, and 12/20/2018 [facility]. BREAST TISSUE:The tissue of both breasts is [...] exam. Electronically signed by: Tabitha ashby/jocy:09/23/2023 16:20:07 Nozzle Worker(s): RT Belle(R)(M), [facility] letter sent: Normal Exam Reading location: [facility] BI-RADS: 2 Benign Procedure [...] dated: 08/06/2022, 02/29/2020, 05/03/2021, 12/02/2018, and 12/20/2018 [facility]. BREAST TISSUE:The tissue of both breasts is [...] signed by: Tabitha Garcia M.D. ab/[email or web address]:09/23/2023 16:20:07 Nozzle Worker(s): RT Belle(R)(M), [facility] letter sent: Normal Exam Reading location: [facility] BI-RADS: 2 Benign us Slf Mammo Self Referred IMG MAMMO ORDERABLES Fin al Result from Last 3 Months or Most Recently Relevant to Health Maintenance Insurance Care Teams Laundry Assistant Relationship Specialty Start Date End Date Samuel Tamayo DO [address] [address] (work) PCP - General Internal Medicine 09/22/23
--- OUTSIDE RECORDS SUMMARY | 2024-10-04 07:51 | XMS_ITS | Clinical Summary ---
Author Organization [facility] Address [address] [facility] Attn: Epic Prelude ADT SABRINA DOVE [address] Care Team Providers Care Shuttle Car Operator Name Role Phone Unavailable Primary Care Provider Unavailabl e Social History Tobacco Use Types Packs/Day Years Used Date Smoking Tobacco: Never Assessed Comments Unknown Sex and Gender Information Value Date Recorded Sex Assigned at Not on file Legal Sex Female 4:22 AM TRANSFORMER TESTER Gender Identity Not on file Sexual Orientation [...]
--- OUTSIDE RECORDS SUMMARY | 2024-10-04 07:51 | XMS_ITS | Encounter Summary ---
Author Organization [facility] Address [address] [facility] [address] [place] [address] Care Team Providers Care Back Winder Name Role Phone Stephanie Wood MD Primary Care Provider [phone] Silvio Day MD Primary Care Provider [phone] Encounter Details Date Type Department Care Team (Late st Contact Info) Description 06/18/2016 [facility] Only [facility] ProviderAlice MD [address] [place] [address] Social History Tobacco Use Types Packs/Day Years Used Date Smoking Tobacco: Never Assessed Alcohol Use Standard Drinks/Week Comments No 0 (1 standard drink = 0.6 oz pur e alcohol) Comments Unknown Sex and Gender Information Value Date Recorded Sex Assigned at Not on file Legal Sex Female 8:33 PM EDGE BURNISHER Gender Identity Not on file Sexual Orientation [...] on filedocumented in this encounter Care Teams Back Winder Relationship Specialty [place] [address] [address] PCP - General 07/16/10 12/24/17 Silvio Day MD [address] [address] PCP - General Internal Medicine 12/25/17 documented as of this encounter
--- NOTE | 2024-10-04 08:00 | ECHO_ITS ---
Patient Info Name: Galilea Elder Age: 69 years : 1955 Gender: Female Ht: 60 in Wt: 185 lbs BSA: 1.93 m2 HR: 72 bpm BP: 142 / 88 mmHg Technical Quality: Good Exam Date: 10/04/2024 8:18 AM Patient Status: O Admit Date: 10/04/2024 Exam Type: CA echo doppler color flow Complete two-dimensional, color flow and Doppler transthoracic echocardiogram is performed. Mask Inspector: Tierra Rojas Attending Provider: Harpreet Cyr DO Summary 1. Complete two-dimensional, color flow and Doppler transthoracic echocardiogram is performed. 2. Left ventricular chamber dimension is normal. 3. Left ventricular systolic function is normal, estimated at 60-65. 4. The left ventricular diastolic function is grade I diastolic dysfunction. 5. E/e' 8 is minimally elevated. 6. There is mild aortic valve sclerosis. Left Ventricle E/e' 8 is minimally elevated. Left ventricular chamber dimension is normal. Left ventricular systolic function is normal, estimated at 60-65. The left ventricular diastolic function is grade I diastolic dysfunction. Right Ventricle Right ventricular chamber dimension is normal. Right ventricular systolic function is normal. Left Atria Left atrial chamber dimension is normal. Right Atria Right atrial chamber dimension is normal. Aortic Valve The aortic valve is trileaflet. There is mild aortic valve sclerosis. There is no aortic valve stenosis. There is no aortic valve regurgitation. Pulmonic Valve There is no pulmonic regurgitation. Mitral Valve There is no mitral valve stenosis. There is no mitral valve regurgitation. Tricuspid Valve There is no tricuspid valve regurgitation. Pericardium/Pleural There is no pericardial effusion. Inferior Vena Cava Normal inferior vena cava with >50% collapse upon inspiration consistent with normal right atrial pressure, 5 mmHg. Aorta The aortic root size at the sinus of Valsalva is normal. Left Ventricular Outflow Tract Name Value Normal LVOT 2D LVOT Diameter 2.0 cm LVOT Doppler LVOT Peak Velocity 145 cm/s LVOT Peak Gradient 8 mmHg LVOT Mean Gradient 4 mmHg LVOT VTI 32 cm LVOT Stroke Volume 99 ml LVOT CO 7.1 l/min LVOT CI 3.7 l/min/m2 Pulmonic Valve Name Value Normal RVOT Doppler RVOT Peak Velocity 87 cm/s RVOT Peak Gradient 3 mmHg PV Doppler PV Peak Velocity 108 cm/s PV Peak Gradient 5 mmHg Mitral Valve Name Value Normal MV Diastolic Function MV E Peak Velocity 70 cm/s MV A Peak Velocity 96 cm/s MV E/A 0.7 MV Decel Time (PW) 315 ms MV Annular TDI MV E/e' (Septal) 9.4 MV E/e' (Lateral) 8.5 MV E/e' (Average) 8.9 Tricuspid Valve Name Value Normal Estimated PAP/RSVP RA Pressure 5 mmHg <=5 Aortic Valve Name Value Normal AV Doppler AV Peak Velocity 180 cm/s AV Peak Gradient 13 mmHg AV Area (Cont Eq Gil) 2.5 cm2 AV DI (Igl) 0.81 AV Regurgitation 2D LVOT Area 3.1 cm2 Ventricles Name Value Normal LV Dimensions 2D/MM IVS Diastolic Thickness (2D) 1.0 cm 0.6-1.0 LVID Diastole (2D) 3.8 cm 3.8-5.2 LVIW Diastolic Thickness (2D) 1.1 cm 0.6-0.9 LVID Systole (2D) 2.5 cm 2.2-3.5 LVOT Diameter 2.0 cm LV Mass (2D Cubed) 130.67 g 67.00-162.00 LV Mass Index (2D Cubed) 68 g/m2 43-95 Relative Wall Thickness (2D) 0.59 <=0.42 LV Fractional Shortening/Ejection Fraction 2D/MM LV Fractional Shortening (2D) 35 % 27-45 LV EF (2D Teichneymarz) 65 % LV Diastolic Volume (4C MOD) 90 ml LV EF (4C MOD) 66 % LV Diastolic Volume (2C MOD) 96 ml LV EF (2C MOD) 64 % LV Diastolic Volume (BP MOD) 93 ml 46-106 LV Diastolic Volume Index (BP MOD) 48 ml/m2 29-61 LV Systolic Volume (BP MOD) 34 ml 14-42 LV Systolic Volume Index (BP MOD) 18 ml/m2 8-24 LV EF (BP MOD) 64 % 54-74 LV Diastolic Length (4C) 8.4 cm LV Systolic Length (4C) 7.3 cm LV Stroke Volume (4C MOD) 59 ml Atria Name Value Normal LA Dimensions LA Volume (4C A-L) 32 ml LA Volume (BP A-L) 33 ml RA Dimensions RA Systolic Major Reading Length (4C) 4.9 cm 2.2-2.8 RA Area (4C) 11.6 cm2 <=18.0 Report Signatures
--- NOTE | 2024-10-04 09:30 | EST_ITS ---
Patient Info Name: Galilea Elder Age: 69 years : 1955 Gender: Female Ht: 60 in Wt: 184 lbs BSA: 1.92 m2 HR: 81 bpm BP: 140 / 67 mmHg Exam Date: 10/04/2024 9:30 AM Patient Status: O Admit Date: 10/04/2024 Exam Type: CA stress eliana w NM A regadenoson stress test was performed. Staff Attending Provider: Harpreet Cyr DO Exercise Technologist: Jodi Morrow Exercise Physician: Harpreet Cyr DO Summary 1. 1. Negative Lexiscan stress test for ischemic ST changes by ECG criteria. 2. 2. Stable hemodynamics throughout the test. 3. 3. Nuclear scan to follow and will be reported separately. Please correlate with it. 4. 4. Patient informed of the above results. Protocol: Lexiscan Stress ECG Details Stage: REST Duration (min): 4 min : 45 sec HR (bpm): 82 SBP (mmHg): 140 DBP (mmHg): 67 Stage: REST Duration (min): 7 min : 57 sec HR (bpm): 88 SBP (mmHg): 140 DBP (mmHg): 67 Stage: STAGE 1 Duration (min): 0 min : 59 sec HR (bpm): 110 SBP (mmHg): 140 DBP (mmHg): 67 Stage: RECOVERY Duration (min): 1 min : 0 sec HR (bpm): 102 SBP (mmHg): 140 DBP (mmHg): 67 Stage: RECOVERY Duration (min): 2 min : 0 sec HR (bpm): 97 SBP (mmHg): 140 DBP (mmHg): 67 Stage: RECOVERY Duration (min): 3 min : 0 sec HR (bpm): 95 SBP (mmHg): 141 DBP (mmHg): 64 Stage: RECOVERY Duration (min): 4 min : 0 sec HR (bpm): 92 SBP (mmHg): 141 DBP (mmHg): 64 Stage: RECOVERY Duration (min): 5 min : 0 sec HR (bpm): 92 SBP (mmHg): 137 DBP (mmHg): 61 Stage: RECOVERY Duration (min): 5 min : 24 sec HR (bpm): 91 SBP (mmHg): 137 DBP (mmHg): 61 Rest HR: 88 bpm Peak HR: 110 bpm Rest Sys BP: 140 mmHg Peak Sys BP: 141 mmHg Max Pred HR: 150 bpm % Max Pred HR: 73 % Target HR: 128 bpm Max RPP: 15,510 bpm*mmHg Termination Reason: Completed protocol Cardiac Symptoms: Shortness of breath Total Time: 1 min : 0 sec Rest Callaway BP: 67 mmHg Peak [place] BP: 64 mmHg Total Dose: 0.4 mg Resting ECG Sinus rhythm. Stress ECG No ST changes. Arrhythmias None. Report Signatures
== END 2024-10-04 07:41 | disposition home or self-care (01) ==
PROVIDERS: PCP Internal Medicine; Visit Provider Internal Medicine Cardiovascular Disease
DX: R06.09 Other forms of dyspnea (principal)
CPT/HCPCS: 78452; 93017; 93306; A9502; J2785

== ENCOUNTER 2024-10-04 07:42 | Outpatient (CLI) | payer OTHER, SELFPAY ==
--- NOTE | ~2024-10-04 | NM_ITS ---
EXAMINATION: NM eliana stress w perfusion DATE: 10/04/2024 10:01 INDICATION: Other forms of dyspnea TECHNIQUE: Rest images were obtained following intravenous administration of 10.8 mCi Tc99m tetrofosmin (Myoview). The patient was infused intravenously with Lexiscan (Regadenoson). Then, 34.8 mCi Tc99m tetrofosmin (Myoview) was administered intravenously, and stress images were obtained. Data was darius nstructed into short axis and horizontal and vertical long axis SPECT images. Gated SPECT images were also obtained. COMPARISON: None. FINDINGS: There is no definite reversible or fixed perfusion abnormality to suggest ischemia or infarction. There is normal left ventricular chamber size, wall motion and ejection fraction. Left ventricular ejection fraction measures >70%. IMPRESSION: 1. Normal myocardial perfusion at rest and during stress. 2. Left ventricular ejection fraction measuring >70%. Reviewed, dictated and finalized at location A.
== END 2024-10-04 07:43 | disposition home or self-care (01) ==
PROVIDERS: PCP Internal Medicine; Visit Provider Internal Medicine Cardiovascular Disease
DX: R06.09 Other forms of dyspnea (principal)
CPT/HCPCS: 78452; A9502; J2785

== ENCOUNTER 2024-10-06 07:01 | Outpatient (CLI) | payer OTHER, SELFPAY ==
[2024-10-06 07:30] LABS: Hematocrit 43.9 % (37.0-47.0); Hemoglobin 13.5 g/dL (12.0-15.0)
[2024-10-06 07:41] LABS: Hemoglobin A1C 6.3 % (<5.7)
[2024-10-06 07:49] LABS: Albumin Level 4.0 g/dL (3.5-5.1); Estimated Glomerular Filt Rate > 60; Glucose 122 mg/dL (65-110)
== END 2024-10-06 07:02 | disposition home or self-care (01) ==
LOC: ANHLAB 07:04
PROVIDERS: PCP Internal Medicine; Visit Provider Orthopaedic Surgery
DX: R73.9 Hyperglycemia, unspecified (principal); E61.1 Iron deficiency; E78.5 Hyperlipidemia, unspecified
CPT/HCPCS: 36415; 82040; 82565; 82947; 83036; 85014; 85018

== ENCOUNTER 2024-12-12 11:42 | Outpatient (CLI) | payer OTHER, SELFPAY ==
[2024-12-12 13:08] LABS: Hematocrit 45.2 % (37.0-47.0); Hemoglobin 14.5 g/dL (12.0-15.0); Immature Granulocyte Percent A 0.3 % (0-0.5); Lymphocytes Absolute Auto 2.62 K/mm3 (0.9-3.2); Mean Corpuscular HGB Conc 32.1 g/dl (32-36); Mean Corpuscular Hemoglobin 28.2 pg (26-34); Mean Corpuscular Volume 87.9 fl (80-100); Nucleated Red Blood Cells Absolute Auto 0.000 K/mm3 (0.0-0.012); Nucleated Red Blood Cells Perc 0.0 % (0.0-0.2); Platelet Count Result 426 k/mm3 (150-375); Red Blood Count 5.14 M/mm3 (4.2-5.4); White Blood Count 10.1 K/mm3 (4.5-10.0)
--- OUTSIDE RECORDS SUMMARY | 2024-12-12 13:23 | XMS_ITS | Clinical Summary ---
Author Organization [facility] Address [address] [place]: Epic Prelude ADT SABRINA DOVE [address] Care Team Providers Care Turbine Inspector Name Role Phone Unavailable Primary Care Provider Unavailabl e Social History Tobacco Use Types Packs/Day Years Used Date Smoking Tobacco: Never Assessed Comments Unknown Sex and Gender Information Value Date Recorded Sex Assigned at Not on file Legal Sex Female 4:22 AM CHANNEL PROCESS SUPERVISOR Gender Identity Not on file Sexual Orientation [...]
--- OUTSIDE RECORDS SUMMARY | 2024-12-12 13:23 | XMS_ITS | Clinical Summary ---
Author Organization [facility] [place] [address] Address [address] [place] [address] Care Team Providers Care Local Telephone Operator Name Role Phone Silvio Day MD Primary Care Provider [phone] Allergies Active Allergy Reactions Criticality Noted Date Comments Codeine Other (See comments) High Reaction: unknown, Medications ergocalciferol (VITAMIN D2) 50,000 unit capsule take 1 capsule ([id number]) by ORAL route every week 12 4 [...] D2) 50,000 unit capsule take 1 capsule ([id number]) by ORAL route every week 4 6 [...] last one (lumpectomy): BX done 3 in [place] and 1 at [facility] [place] OTHER SURGICAL HISTORY uterine Fobroids, adenomyosis and [...] 2 Phill's Disea se; Cause of : Clarion's Disease Hypertension Sister Hypertension; Other Sister thyroid; [...] on file Legal 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
--- OUTSIDE RECORDS SUMMARY | 2024-12-12 13:23 | XMS_ITS | Encounter Summary ---
Author Organization [facility] Address [address] [place] [address] Care Team Providers Care Mothercraft Nurse Name Role Phone Unavailable Primary Care Provider [...] on file Legal Sex Female 4:22 AM TEXTILE KNITTER Gender Identity Not on file Sexual Orientation Not on file documented as of this encounter Plan of Treatment Not on file documented as of this encounter Visit Diagnoses Diagnosis Unspecified breast disorder- Primary documented in this encounter
--- OUTSIDE RECORDS SUMMARY | 2024-12-12 13:23 | XMS_ITS | Clinical Summary ---
Author Organization [facility] Address [address] [place] [address] Care Team Providers Care Auditor Name Role Phone Silvio Day DO Primary Care Provider Source Comments [facility],non-owned Affiliates and Associated Physician Practices is amultiple site organization consisting of ambulatory clinics and hospital sitesin [place], [place], [place] and [place]. This disclosure is being madepursuant to the Care Everywhere program and may not contain all information available regarding this patient. Last updated 17.[facility] Allergies Active Allergy Reactions Criticality Noted Date [...] needed Active CALCIUM PO Active nystatin (MYCOSTATIN) 260501 UNIT/GM ointmentIndica tions:Lichen sclerosus,Vulv ar itching,Vulvar burning [...] on file Legal Sex Female 6:05 AM MEDICAID SPECIALIST Gender Identity Not on file Sexual Orientation Not on file Last Filed Vital Signs Vital Sign Reading Time Taken Comments Blood Pressure 140/80 01/23/2021 12:59 PM MEDICAID SPECIALIST Pulse - - Temperature - - Respiratory Rate - - Oxygen Saturation - - Inhaled Oxygen Concentration - - Weight 91.6 kg (202 lb) 01/23/2021 12:59 PM MEDICAID SPECIALIST Height 152.4 cm (5') 01/23/2021 12:59 PM MEDICAID SPECIALIST Body Mass Index 39.45 01/23/2021 12:59 PM MEDICAID SPECIALIST Plan of Treatment Health Maintenance Due Date [...] MAMMOGRAM 01/16/2022 01/17/2020 (Done Outside Per Patient) DEPRESSION SCREENING 02/17/2024 COVID-19 VACCINE (3 - 2024-2 6 season) 2024 04/17/2020, 03/20/2020 INFLUENZA VACCINE (#1) 2024 02/16/2013 Respiratory Syncytial [...] this topic Insurance [employer] Care Teams Auditor Relationship Specialty Start Date End Date Silvio Day DO [address] [facility] [address] [place] [address] PCP - General 01/20/21
--- OUTSIDE RECORDS SUMMARY | 2024-12-12 13:23 | XMS_ITS | Encounter Summary ---
Author Organization [facility] Address [address] [place] [address] Care Team Providers Care Clinical Molecular Geneticist Name Role Phone Stephanie Wood MD Primary Care Provider [phone] Silvio Day MD Primary Care Provider [phone] Encounter Details Date Type Department Care Team (Late st Contact Info) Description 06/18/2016 Orders Only [facility] ProviderAlice MD [address] [place] [address] Social History Tobacco Use Types Packs/Day Years Used Date Smoking Tobacco: Never Assessed Alcohol Use Standard Drinks/Week Comments No 0 (1 standard drink = 0.6 oz pur e alcohol) Comments Unknown Sex and Gender Information Value Date Recorded Sex Assigned at Not on file Legal Sex Female 8:33 PM PATIENT INTAKE COORDINATOR Gender Identity Not on file Sexual Orientation [...] on filedocumented in this encounter Care Teams Clinical Molecular Geneticist Relationship Specialty [place] [address] [address] PCP - General 07/16/10 12/24/17 Silvio Day MD [address] [address] PCP - General Internal Medicine 12/25/17 documented as of this encounter
--- OUTSIDE RECORDS SUMMARY | 2024-12-12 13:23 | XMS_ITS | Clinical Summary ---
Author Organization [facility] Address [address] [place] [address] Phone Care Team Providers Care Ironing Pleater Name Role Phone Roni, Samuel Ojeda DO Primary Care Provider [phone] Allergies No known active allergies Medications atorvastatin [...] 2004 Zoster Immunization (1 of 2) 2004 Medicare Initial AWV [id number] 02/16/2023 Mammogram 09/21/2024 09/22/2023 Influenza Immunization (#1) 10/17/202411/16, 02/16/2013 SARS-COV-2 Immunization ( season) 2024 12/27/2021, 04/17/2020, 03/20/2020 Respiratory Syncytial Virus (RSV) Immunization (Adult) (1 [...] dated: 08/06/2022, 02/29/2020, 05/03/2021, 12/02/2018, and 12/20/2018 [facility]. BREAST TISSUE:The tissue of both breasts is [...] exam. Electronically signed by: Tabitha ashby/jocy:09/23/2023 16:20:07 Sap Specialist(s): RT Belle(R)(M), [facility] letter sent: Normal Exam Reading location: [facility] BI-RADS: 2 Benign Procedure Note Tabitha [...] dated: 08/06/2022, 02/29/2020, 05/03/2021, 12/02/2018, and 12/20/2018 [facility]. BREAST TISSUE:The tissue of both breasts is [...] exam. Electronically signed by: Tabitha Garcia M.D. ab/penrad:09/23/2023 16:20:07 Sap Specialist(s): RT Belle(R)(M), [facility] letter sent: Normal Exam Reading location: [facility] BI-RADS: 2 Benign us Slf Mammo Self Referred IMG MAMMO ORDERABLES Fin al Result from Last 3 Months or Most Recently Relevant to Health Maintenance Insurance MEDICARE C [employer] Care Teams Ironing Pleater Relationship Specialty Start Date End Date Samuel Tamayo DO [address] [address] PCP - General Internal Medicine 09/22/23
[2024-12-12 13:30] LABS: Albumin Level 4.6 g/dL (3.5-5.1)
[2024-12-12 13:33] LABS: Anion Gap 10 mmol/L (4-12); Blood Urea Nitrogen 16 mg/dL (7-17); Calcium 9.2 mg/dL (8.4-10.2); Carbon Dioxide 27 mmol/L (22-30); Chloride 103 mmol/L (98-107); Estimated Glomerular Filt Rate > 60; Glucose 118 mg/dL (65-110); Potassium 3.8 mmol/L (3.4-5.0); Sodium 140 mmol/L (137-145)
[2024-12-12 14:56] LABS: MRSA (PCR) NOT DETECTED (NOT DETECTE)
== END 2024-12-12 11:43 | disposition home or self-care (01) ==
LOC: ANHSURGERY 11:46
PROVIDERS: Anesthesiology; PCP Internal Medicine; Visit Provider Orthopaedic Surgery
DX: Z01.812 Encounter for preprocedural laboratory examination (principal); M17.2 Bilateral post-traumatic osteoarthritis of knee; I10 Essential (primary) hypertension
CPT/HCPCS: 36415; 80048; 80307; 82040; 85025; 87641

== ENCOUNTER 2025-01-03 01:33 | Day surgery (SDC) | payer OTHER, SELFPAY ==
--- NOTE | 2024-12-12 11:50 | PC.NURSE ---
[facility] has started construction of its new state of the art ER which will open Spring 2026. With this, we anticipate parking may be a challenge for some our surgical patients and families. Parking spaces are limited but are available for all Surgical, obstetrics, and ER patients sharing this lot. If you arrive and find you are having a hard time finding a parking space, please note that we understand the challenges, please drive around the hospital and park near Hospital Entrance 1. When you enter this entrance, you can ask a volunteer to direct or take you back to the surgical waiting area to check in. We appreciate everyone?s understanding of these expected challenges while we build for your future. Report to the Outpatient Waiting Room, entrance under the green pavilion located off [address], at time _8:30 AM on date _01/03/25 . Planned Procedure Time: _10:30 AM .? Time changes happen often and if your time is changed the preop area will call you the afternoon before. - You and your visitor will be asked to self-screen and do not enter if you have any COVID symptoms. Please call surgeon if you need to reschedule. - A mask is optional within the hospital at this time. Patients may have clear liquids (water, carbonated beverages, clear teas, apple juice) until 3 hours prior to surgery( 7:30 AM) with a maximum of 20 ounces. - No food from midnight until time of surgery and no smoking, or chewing tobacco (or any form of nicotine). No chewing gum, candy or mints. - Take only the following medications with a SIP of water on the morning of surgery: __INHALER IF NEEDED,DILTIAZEM, DO NOT STOP ANY OF YOUR OTHER PRESCRIPTION MEDICATIONS PRIOR TO SURGERY EXCEPT THE FOLLOWING Hold all vitamins and supplements for 3 days per anesthesiologist.LAST DOSE 12/30/24 Medications to discontinue per physician ___HOLD ASPIRIN AND ADVIL DUAL 7 DAYS PRE OP PER DR BONDS Date to take last dose___12/26/24 Please no make-up, nail citizen of [place], hairspray, perfume, deodorant, or body powder the day of surgery.? No jewelry (including any body piercings) or valuables the day of surgery, leave them at home.? Please take a shower or bath the night before, or the morning of, surgery with an antibacterial soap.? Wear comfortable, loose fitting clothing.? Children are encouraged to wear pajamas. - Jewelry must be removed prior to entering the operating room.? Rings and piercings that are not removed may be cut off. - The hospital will not accept responsibility for valuables.? - Please leave all valuables, including medications, at home the day of surgery. If you are going home after surgery, a licensed driver's education instructor must drive you home.? - NO public transportation without another adult if you receive anesthesia. - We recommend that an adult stay with you for 24 hours following discharge. - We also recommend that you do not drive, make important decision, drink alcoholic beverages, or take any drugs that were not prescribed by your health care provider for at least 24 hours after your discharge time. For Pediatric surgeries, we recommend two adults accompany the child home. Follow any additional instructions given to you from your surgeon. VERBAL AND WRITTEN instructions given to ___PATIENT_AND SPOUSE and asked if any additional questions and then verbalized understanding. Patient advised to call surgeon office or pre surgery nurse liaison [phone] if any additional questions.
[2024-12-12 12:38] VITALS: BP 133/70; PULSE 84; RESP 18; TEMP 37.1; O2SAT 97; BMI 35.9
[2025-01-03] VITALS (19 sets, daily range): BP systolic 119–148; BP diastolic 38–77; PULSE 78–98; RESP 11–20; TEMP 36.4–36.9; O2SAT 92–99; BMI 36.3
--- NOTE | ~2025-01-03 | XR_ITS ---
EXAMINATION: [id number], 01/03/2025 13:00 CHEF DE PARTIE HISTORY: POST-OP LEFT CUSTOM TKA COMPARISON: No comparisons available. Findings: No acute fracture or malalignment. Arthroplasty intact Soft tissues unremarkable. Impression: No acute fracture or malalignment. Reviewed, dictated and finalized at location P. DE PARTIE Impression: No acute fracture or malalignment.
--- OUTSIDE RECORDS SUMMARY | 2025-01-03 02:59 | XMS_ITS | Clinical Summary ---
Author Organization [facility] Address [address] 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
--- OUTSIDE RECORDS SUMMARY | 2025-01-03 02:59 | XMS_ITS | Clinical Summary ---
Author Organization [facility] Address [address] [place] [address] Phone Care Team Providers Care Delivery Analyst Name Role Phone Roni, Samuel Ojeda DO Primary Care Provider [phone] Allergies No known active allergies Medications atorvastatin [...] dated: 08/06/2022, 02/29/2020, 05/03/2021, 12/02/2018, and 12/20/2018 [facility]. BREAST TISSUE:The tissue of both breasts is [...] exam. Electronically signed by: Tabitha ashby/jocy:09/23/2023 16:20:07 Teacher Preschool(s): RT Belle(R)(M), [facility] letter sent: Normal Exam Reading location: [facility] BI-RADS: 2 Benign Procedure Note Tabitha Garcia [...] dated: 08/06/2022, 02/29/2020, 05/03/2021, 12/02/2018, and 12/20/2018 [facility]. BREAST TISSUE:The tissue of both breasts is [...] signed by: Tabitha Garcia M.D. ab/penrad:09/23/2023 16:20:07 Teacher Preschool(s): RT Belle(R)(M), [facility] letter sent: Normal Exam Reading location: [facility] BI-RADS: 2 Benign us Slf Mammo Self Referred IMG MAMMO ORDERABLES Fin al Result from Last 3 Months or Most Recently Relevant to Health Maintenance Insurance MEDICARE C [employer] Care Teams Delivery Analyst Relationship Specialty Start Date End Date Samuel Tamayo DO [address] [address] PCP - General Internal Medicine 09/22/23
--- OUTSIDE RECORDS SUMMARY | 2025-01-03 02:59 | XMS_ITS | Clinical Summary ---
Author Organization [facility] Address [address] [place] [address] Care Team Providers Care Marking Machine Tender Name Role Phone Silvio Day DO Primary Care Provider Source Comments [facility],non-owned Affiliates and Associated Physician Practices is amultiple site organization consisting of ambulatory clinics and hospital sitesin [place], [place], [place] and [place]. This disclosure is being madepursuant to the Care Everywhere program and may not contain all information available regarding this patient. Last updated 17.[facility] Allergies Active Allergy Reactions Criticality Noted Date [...] needed Active CALCIUM PO Active nystatin (MYCOSTATIN) 339391 UNIT/GM ointmentIndica tions:Lichen sclerosus,Vulv ar itching,Vulvar burning [...] on file Legal Sex Female 6:05 AM FLOOR LAYER Gender Identity Not on file Sexual Orientation Not on file Last Filed Vital Signs Vital Sign Reading Time Taken Comments Blood Pressure 140/80 01/23/2021 12:59 PM FLOOR LAYER Pulse - - Temperature - - Respiratory Rate - - Oxygen Saturation - - Inhaled Oxygen Concentration - - Weight 91.6 kg (202 lb) 01/23/2021 12:59 PM FLOOR LAYER Height 152.4 cm (5') 01/23/2021 12:59 PM FLOOR LAYER Body Mass Index 39.45 01/23/2021 12:59 PM FLOOR LAYER Plan of Treatment Health Maintenance Due Date [...] this topic Insurance [employer] MEDICARE Care Teams Marking Machine Tender Relationship Specialty Start Date End Date Silvio Day DO [address] [facility] [address] [place] [address] PCP - General 01/20/21
--- OUTSIDE RECORDS SUMMARY | 2025-01-03 03:00 | XMS_ITS | Clinical Summary ---
Author Organization [facility] [address] Address [address] [place] [address] Care Team Providers Care Halftone Operator Name Role Phone Silvio Day MD Primary Care Provider [phone] Allergies Active Allergy Reactions Criticality Noted Date Comments Codeine Other (See comments) High Reaction: unknown, Medications ergocalciferol (VITAMIN D2) 50,000 unit capsule take 1 capsule ([id number]) by ORAL route every week 12 4 [...] D2) 50,000 unit capsule take 1 capsule ([id number]) by ORAL route every week 4 6 [...] last one (lumpectomy): BX done 3 in [place] and 1 at [facility] OTHER SURGICAL HISTORY uterine Fobroids, adenomyosis and [...] 2 Phill's Disea se; Cause of : Parmer's Disease Hypertension Sister Hypertension; Other Sister thyroid; [...] on file 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
--- OUTSIDE RECORDS SUMMARY | 2025-01-03 03:01 | XMS_ITS | Encounter Summary ---
Author Organization [facility] Address 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
--- OUTSIDE RECORDS SUMMARY | 2025-01-03 03:01 | XMS_ITS | Encounter Summary ---
Author Organization [facility] Address [address] [address] Care Team Providers Care Supervisor Ski Production Name Role Phone Stephanie Wood MD Primary Care Provider [phone] Silvio Day MD Primary Care Provider [phone] Encounter Details Date Type Department Care Team (Late st Contact Info) Description 06/18/2016 Orders Only [facility] ProviderAlice MD [address] [place] [id number] Social History Tobacco Use Types Packs/Day Years Used Date Smoking Tobacco: Never Assessed Alcohol Use Standard Drinks/Week Comments No 0 (1 standard drink = 0.6 oz pur e alcohol) Comments Unknown Sex and Gender Information Value Date Recorded Sex Assigned at Not on file Legal 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
[2025-01-03] MEDS: ACETAMINOPHEN 500 MG TABLET 1000 MG PO (09:25)
[2025-01-03] MEDS: LACTATED RINGERS 1,000 ML 30 ML IV CONT ×2 (09:35→12:37)
[2025-01-03] MEDS: TRANEXAMIC ACID 1,000MG/ISO100 1,000 MG/100 ML BAG 200 MG IVPB (09:50)
--- NOTE | 2025-01-03 10:06 | W.PM.PROC2 ---
Procedure Note - Detailed Date of Procedure 01/03/25 Pre-op Diagnosis Left knee degenerative arthritis. Post-op Diagnosis Same Procedure Performed Custom total knee arthroplasty, left. Surgeon Bipin Barragan MD Director Of Manufacturing Operations Yolanda Goodman PA-C Anesthesia General Description of Procedure Preoperative antibiotics were given. The limb was prepped and draped in the usual sterile fashion with a well-padded tourniquet high on the thigh. The limb was exsanguinated and the tourniquet inflated to 300 mmHg during exposure and cementation. A longitudinal incision was created just medial to the patella. A trivector approach to the knee was performed. Arthrotomy was taken down through the joint capsule. No significant releases were initially taken. The femur was exposed and the F1 jig was applied. The coring tool was used to remove the cartilage for the F2 jig to sit flush with the bone. The jig was pinned and the distal cut carefully taken. Caliper measurements confirmed appropriate bony resections according to the preoperative templated plan. The F4 cutting jig for the femur was applied, at the standard rotation. The AP and anterior chamfer cuts were taken. The F5 jig was applied and the posterior chamfer cuts were taken. The tibia was prepared using the T1 jig, after removing cartilage for the jig contact points. Proper alignment was checked with the alignment kira. The tibia was cut using the T1u guide. Gap balancing was performed. Gap measurements were taken and the knee was trialed. Excellent alignment and soft tissue balancing was confirmed. The posterior cruciate ligament was recessed along the proximal tibia. The patella tracked well. A lateral facetectomy was performed. Meniscal remnants were removed. The trial components were assembled. Excellent range of motion and proper soft tissue balancing were confirmed throughout the full range of motion. Patellar tracking was excellent. The knee was copiously irrigated periodically throughout the procedure. The real implants were cemented into position. Excess cement was carefully removed. The wound was closed in layers with interrupted #1 Vicryl suture, 2-0 strata fix suture, 0 strata fix suture, 2-0 strata fix suture. Steri-Strips placed on the skin with the knee flexed. Sterile bulky dressing applied. The patient was brought to the recovery room in stable condition. There were no complications. Physician assistant corporate controller, Yolanda Goodman PA-C, required for surgery; including patient positioning, draping, tissue retraction, maintaining instrument position, cement removal, wound closure, and dressing placement. Implants Conformis Custom total knee arthroplasty. Cemented. Cruciate retaining. 7C insert. Estimated Blood Loss 50 Drains No Complications No immediate complications Condition Stable Disposition PACU [facility] Billing Surgery - Charge Forward: Surgery Billing
--- NOTE | 2025-01-03 10:26 | WPDHPUPDATE1 ---
History and Physical Update Update Date/Time: 01/03/25 10:26 History and Physical has been reviewed, including an updated exam of the patient. There are NO changes in the patient's condition. Risks, benefits, and alternatives have been discussed and questions answered. Patient agrees to proceed with procedure.
--- NOTE | 2025-01-03 10:31 | P.PNAN_ITS ---
Anes - Initial Pre Proc Eval Procedure: Operation Date: 01/03/25 10:30 Proposed Procedures p Left Custom Total Knee Arthroplasty - Bipin Barragan MD Date/Time: 01/03/25 10:31 Surgeon: Bipin Barragan MD Pre Op Diagnosis: primary oa left knee Patient Data Age: 69 Gender: F Height: 1.52 m Weight: 84.4 kg Last Vital Signs Temp 98.5 F 01/03/25 09:45 Pulse 98 01/03/25 09:45 Resp 18 12/12/24 12:38 BP 147/74 H 01/03/25 09:45 Pulse Ox 98 01/03/25 09:45 O2 Del Method Room Air 01/03/25 09:45 Allergies Allergy/AdvReac Type Severity Reaction Status Date / Time codeine AdvReac Mild Nausea Verified 12/12/24 11:58 Home Medications ?Medication ?Instructions ?Recorded ?Confirmed ?Type cholecalciferol (vitamin D3) 100 4,000 unit PO DAILY 0 02/24/19 01/03/25 History mcg (4,000 unit) capsule [id number] 250 mg-dha 90 1 cap PO DAILY 09/2901/03/25 History mg-epa 160 zf-ctqu-aelo-zeax capsule (Ocuvite Adult 50 Plus) diltiazem HCl 180 mg 360 mg (2 x 180 mg) PO DAILY #180 03/09/24 01/03/25 Rx capsule,extended release 24 hr caps omeprazole 40 mg capsule,delayed 40 mg PO DAILY #90 ca ps 05/16/24 12/13/24 Rx release alendronate 70 mg tablet See Rx Instructions .Route 0 05/30/24 12/13/24 Rx .COMPLEX #12 tabs triamcinolone acetonide 0.025 % 1 applic topical DAILY #15 grams 08/10/24 12/13/24 Rx topical ointment furosemide 20 mg tablet 20 mg PO QAM PRN edema #30 t abs 08/22/24 12/13/24 Rx ezetimibe 10 mg tablet See Rx Instructions .Route 0 11/14/24 12/13/24 Rx .COMPLEX #90 tabs aspirin 81 mg capsule 81 mg PO DAILY 12/12/2412/17 History budesonide-formoterol HFA 160 2 inh inhalation PRN PRN COUGH 12/12/24 12/12/24 History mcg-4.5 mcg/actuation aerosol inhaler cyclobenzaprine 5 mg tablet 5 mg PO .QHS PRN muscle sp asm #30 12/12/24 Rx tabs ibuprofen 125 mg-acetaminophen 250 2 tablet PO PRN PRN pain 12/12/24 12/12/24 History mg tablet (Advil Dual Action) aspirin 81 mg tablet,delayed 81 mg PO BID 14 days #28 tabs 01/03/25 Rx release oxycodone-acetaminophen 5 mg-325 1 - 2 tablet PO Q4-6H PRN pain 7 01/03/25 Rx mg tablet days #30 tabs prednisone 5 mg tablet 5 mg PO DAILY 3 weeks #21 ta bs 01/03/25 Rx Laboratory Tests 01/03/25 09:40 Blood Type A Positive Antibody Screen Negative Patient hx anesthesia problems: post op nausea/vomiting Family hx anesthesia problems: none Results Review: All pre-operative results and documents have been reviewed as part of the pre- operative evaluation. [facility] Past Medical History Medical History Vaginal dryness, menopausal Palpitations Lichen sclerosus et atrophicus of the vulva FUENTES (dyspnea on exertion) Atypical chest pain Pure hypercholesterolemia Primary osteoarthritis of knees, bilateral Post-menopausal Other fatigue Other abnormal and inconclusive findings on diagnostic imaging of breast Myalgia Moderate asthma LFT elevation Left leg pain History of palpitations Gastro-esophageal reflux disease without esophagitis Essential (primary) hypertension Encounter for breast cancer screening other than mammogram Encounter for screening colonoscopy Adult general medical exam Adult general medical exam Dysuria Dizziness and giddiness Dietary counseling and surveillance (05/13/16) Cough Chest pain, unspecified Body mass index [BMI] 38.0-38.9, adult (11/11/17) Bilateral lower extremity edema Asthma exacerbation Acute pain of left knee Dorsalgia Osteopenia History of COVID-19 02/25/21 Angina at rest on occasion; takes diltiazem Acid reflux High cholesterol HTN (hypertension) Lichen sclerosus H/O vaginal delivery x2 1978, 1976 Sleep apnea Spasmodic dysphonia Surgical History Surgical History H/O breast biopsy 1x right, 3x left H/O tubal ligation 1978 Hx of hysterectomy 1992 Hx of cholecystectomy 2008 Family History Family History Father Diabetes mellitus Cerebrovascular accident Patient's father is Family history of congenital heart disease Family history of arthritis Sibling Family history of blood dyscrasia Mother Patient's mother is Other Family history of cardiovascular disease Family history of gout Family history of malignant neoplasm of breast in first degree relative Hypertension Social History Social History Smoking status: Never smoker Second hand tobacco smoke exposure: No Additional smoking assessment comments: DENIES ANY FORM OF TOBACCO USE Alcohol intake: never Substance use: never Substance use type: does not use Do You Feel Safe in your Home?: Yes Lack of Transportation: No Lack of Food: Never True Current Housing: I Have Housing Concerned About Future Housing: No Difficulty Paying Gas/Electric Bills: No Difficulty Paying for Meds: No Currently Unemployed: No Education: High School Diploma/GED Difficulty w/ Childcare or Family Care: No Living arrangements: alone Occupation/Education: occupation Gender identity (if verbalized by the patient): Female Sexual Orientation (if Verbalized by the Patient): Straight or Heterosexual Spiritual care concerns: No Anes - Eval Final PreProcedure Day of Procedure 01/03/25 10:31 Patient weight: obese Heart: regular rate and rhythm Lungs: clear to auscultation Airway: Mallampati scale class II Neurological: alert and oriented Last oral intake: >/= 8 hours ASA classification: III Emergent: no Anesthetic plan: proceed Anesthesia type and monitoring: general LMA and standard monitoring Results Review: All pre-operative results and documents have been reviewed as part of the pre- operative evaluation. Informed Consent: The patient's anesthetic plan and its attendant risks and benefits were discussed with the patient/family/POA. Questions were solicited and answers provided to the satisfaction of the patient/family/POA.
[2025-01-03] MEDS: SCOPOLAMINE 1 MG PATCH 1 PATCH TRANSDERM (10:32)
[2025-01-03] MEDS: ceFAZolin 2 GM in SODIUM CHLORIDE 0.9% IV 50 ML 100 ML IVPB ×2 (10:40→17:57)
[2025-01-03] MEDS: SODIUM CHLORIDE 0.9% IV 37.7 ML, MORPHINE SULFATE INJ (*CRX) 2 MG, ROPivacaine HCL 1% 2... INFILTRATE (11:17)
[2025-01-03] MEDS: fentaNYL CITRATE INJ (*CRX) 100 MCG/2 ML VIAL 25 MCG IV PUSH ×8 (12:50→13:25)
[2025-01-03] MEDS: HYDROmorphone HCL INJ (*CRX) 1 MG/ML SYR 0.5 MG IV PUSH ×2 (13:32→13:43)
[2025-01-03] MEDS: ONDANSETRON INJ 4 MG/2 ML VIAL IV PUSH ×2 (15:09→18:42)
--- NOTE | 2025-01-03 15:35 | ADMGEN ---
This patient, Galilea Elder, was admitted to [facility] S[facility] Room 304-02. Patient/family oriented to hospital policies and general routines including ID bracelet, bed and alarms, visiting hours, pain management, procedures, bathroom and other care routines, personal items, smoking policy, room service/diet, and visiting hours. Information on how to activate the Rapid Response Team has been discussed. Patient/Family are encouraged to report perceived risks to care and to ask questions if they do not understand what they are told or what they should do.
[2025-01-03] MEDS: SODIUM CHLORIDE 0.9% IV 1,000 ML 125 ML IV CONT (15:52)
[2025-01-03] MEDS: IBUPROFEN IV 800 MG/200 ML 800 MG/200 ML BAG 400 MG IVPB (15:57)
[2025-01-03] MEDS: oxyCODONE/ACETAMINOPHEN (*CRX) 5-325 MG TABLET 1 TABLET PO (18:44)
[2025-01-03] MEDS: ACETAMINOPHEN 325 MG TABLET 650 MG PO ×2 (18:45→23:00)
[2025-01-03] MEDS: HYDROmorphone HCL INJ (*CRX) 1 MG/ML SYR IV PUSH (19:44)
[2025-01-03] MEDS: diazePAM INJ (*CRX) 10 MG/2 ML SYRINGE 5 MG IV PUSH (20:51)
[2025-01-03] MEDS: FAMOTIDINE 20 MG TABLET PO (20:51)
[2025-01-03] MEDS: ASPIRIN 81 MG ENTERIC TABLET PO (20:51)
[2025-01-03] MEDS: CYCLOBENZAPRINE HCL 5 MG TABLET PO (21:19)
[2025-01-03] MEDS: oxyCODONE/ACETAMINOPHEN (*CRX) 10-325 MG TABLET 1 TAB PO (23:30)
[2025-01-04] MEDS: ceFAZolin 2 GM in SODIUM CHLORIDE 0.9% IV 50 ML 100 ML IVPB ×2 (01:03→10:37)
[2025-01-04] MEDS: HYDROmorphone HCL INJ (*CRX) 1 MG/ML SYR 0.5 MG IV PUSH (01:04)
[2025-01-04 04:36] VITALS: BP 126/52; PULSE 82; RESP 16; TEMP 36.4; O2SAT 92
[2025-01-04] MEDS: ACETAMINOPHEN 325 MG TABLET 650 MG PO ×2 (05:05→12:43)
[2025-01-04 06:38] LABS: Hematocrit 36.9 % (37.0-47.0); Hemoglobin 11.6 g/dL (12.0-15.0); Immature Granulocyte Percent A 0.7 % (0-0.5); Lymphocytes Absolute Auto 1.23 K/mm3 (0.9-3.2); Mean Corpuscular HGB Conc 31.4 g/dl (32-36); Mean Corpuscular Hemoglobin 28.5 pg (26-34); Mean Corpuscular Volume 90.7 fl (80-100); Nucleated Red Blood Cells Absolute Auto 0.000 K/mm3 (0.0-0.012); Nucleated Red Blood Cells Perc 0.0 % (0.0-0.2); Platelet Count Result 324 k/mm3 (150-375); Red Blood Count 4.07 M/mm3 (4.2-5.4); White Blood Count 13.7 K/mm3 (4.5-10.0)
[2025-01-04 07:00] LABS: Anion Gap 7 mmol/L (4-12); Blood Urea Nitrogen 10 mg/dL (7-17); Calcium 8.0 mg/dL (8.4-10.2); Carbon Dioxide 27 mmol/L (22-30); Chloride 102 mmol/L (98-107); Estimated CRCL calculation 63 ml/min; Estimated Glomerular Filt Rate > 60; Glucose 125 mg/dL (65-110); Potassium 3.7 mmol/L (3.4-5.0); Sodium 136 mmol/L (137-145)
--- NOTE | 2025-01-04 07:44 | P.PNOP_ITS ---
Progress Note: A&P Assessment and Plan (1) Status post total left knee replacement: Code(s): Z96.652 - Presence of left artificial knee joint Status: Acute Plan Postop day 1: Total knee arthroplasty. Patient tolerated procedure well. Poor pain control last night. She is nervous about going home due to the pain. Will work on pain control today. She should avoid IV pain medications if possible. Will re-evaluate at lunch but ideally she will still discharge today. No numbness or tingling. We had a lengthy discussion regarding postoperative wound care, limitations, expectations, and exercises. Patient shows good understanding. Patient has followup appointment with Dr. Barragan in 3 weeks. Subjective Subjective Date/Time Seen: 01/04/25 07:44 Interval history: Patient resting comfortably. No distal numbness or tingling. Poor pain control last night. She is nervous about going home due to the pain. No other complaints. Review of Systems Review of Systems: All systems reviewed & are unremarkable except as noted in HPI and below Exam Narrative: 69-year-old overweight female. Resting comfortably in chair. Alert and oriented x3. No acute distress. Wearing compression socks bilaterally. Dressing dry and intact without drainage. Mild swelling. No ecchymosis. No erythema. No hematoma. Range of motion limited due to pain. Calf nontender. Neurologic status intact. No varicosities. Distal pulses palpable. Objective Data Vital Signs Vital Signs: Vital Signs - 24 hr 01/03/25 09:45 01/03/25 12:37 01/03/25 12:47 Temperature 98.5 F 98.3 F Pulse Rate 98 93 84 Respiratory Rate 18 19 Blood Pressure 147/74 H 127/59 L 125/62 Pulse Oximetry 98 95 99 Oxygen Delivery Room Air Simple Face Mask Simple Face Mask Oxygen Flow Rate 10 10 01/03/25 13:00 01/03/25 13:15 01/03/25 13:20 Temperature Pulse Rate 87 82 84 Respiratory Rate 13 12 11 L Blood Pressure 139/38 L 126/60 123/70 Pulse Oximetry 98 98 96 Oxygen Delivery Simple Face Mask Simple Face Mask Room Air Oxygen Flow Rate 10 10 01/03/25 13:35 01/03/25 13:50 01/03/25 14:05 Temperature Pulse Rate 87 79 83 Respiratory Rate 11 L 14 13 Blood Pressure 142/75 H 129/62 129/62 Pulse Oximetry 97 98 94 Oxygen Delivery Nasal Cannula Nasal Cannula Nasal Cannula Oxygen Flow Rate 2 2 2 01/03/25 14:20 01/03/25 14:35 01/03/25 15:00 Temperature 97.7 F Pulse Rate 88 78 84 Respiratory Rate 14 14 18 Blood Pressure 129/62 119/61 132/65 Pulse Oximetry 92 93 98 Oxygen Delivery Nasal Cannula Nasal Cannula Oxygen Flow Rate 2 2 01/03/25 15:15 01/03/25 15:43 01/03/25 15:45 Temperature 98.3 F 98.0 F Pulse Rate 91 86 Respiratory Rate 19 18 Blood Pressure 135/62 130/68 Pulse Oximetry 99 97 97 Oxygen Delivery Room Air Oxygen Flow Rate 01/03/25 16:45 01/03/25 20:00 01/03/25 20:20 Temperature 97.9 F 97.5 F L Pulse Rate 84 89 Respiratory Rate 16 20 Blood Pressure 139/77 148/67 H Pulse Oximetry 99 93 Oxygen Delivery Room Air Oxygen Flow Rate 01/03/25 21:46 01/03/25 23:45 01/04/25 04:36 Temperature 97.7 F 97.6 F Pulse Rate 97 82 Respiratory Rate 19 16 Blood Pressure 137/51 L 126/52 L Pulse Oximetry 93 95 92 Oxygen Delivery Room Air Oxygen Flow Rate Intake/Output Intake/Output: Intake & Output 01/01/25 01/02/25 01/03/25 01/04/25 23:59 23:59 23:59 23:59 Intake Total 1120 450 Balance 1120 450 Meds/Results Medications: Active Medications Generic Name Dose Route Start Last Admin Trade Name Dontrellq PRN Reason Stop Dose Admin Acetaminophen 650 mg 01/03/25 18:00 01/04/25 05:05 Acetaminophen 325 Mg Tablet PO 650 mg Q6HR LUCAS Administration Aspirin 81 mg 01/03/25 21:00 01/03/25 20:51 Aspirin 81 Mg Enteric Tablet PO 81 mg Q12HR LUCAS Administration Cyclobenzaprine HCl 5 mg 01/03/25 14:51 01/03/25 21:19 Cyclobenzaprine Hcl 5 Mg Tablet PO 5 mg Q8H PRN Administration Spasms Diltiazem HCl 360 mg 01/03/25 14:51 01/03/25 16:05 Diltiazem Hcl Cd 180 Mg Cap.24hr PO Not Given DAILY LUCAS Diphenhydramine HCl 25 mg 01/03/25 14:51 Diphenhydramine Hcl Inj 50 Mg/Ml Vial IV PUSH Q6H PRN Itching Ezetimibe 10 mg 01/04/25 09:00 Ezetimibe 10 Mg Tablet BY MOUTH DAILY LUCAS Famotidine 20 mg 01/03/25 21:00 01/03/25 20:51 Famotidine 20 Mg Tablet PO 20 mg Q12HR LUCAS Administration Furosemide 20 mg 01/03/25 14:51 Furosemide 20 Mg Tablet PO QAM PRN Edema Hydromorphone HCl 1 mg 01/03/25 14:51 01/03/25 19:44 Hydromorphone Hcl Inj (*Crx) 1 Mg/Ml Syr IV PUSH 1 mg Q2H PRN Administration Breakthrough Pain Rated 7-10 or NPO Hydromorphone HCl 0.5 mg 01/03/25 14:51 01/04/25 01:04 Hydromorphone Hcl Inj (*Crx) 1 Mg/Ml Syr IV PUSH 0.5 mg Q2H PRN Administration Breakthrough Pain Rated 4-6 or NPO Cefazolin Sodium 2 gm/ Sodium 50 mls @ 100 mls/hr 01/03/25 18:00 01/04/25 01:03 Chloride IVPB 01/04/25 10:29 100 mls/hr Q8H LUCAS Administration Ibuprofen 800 mg in 200 mls @ 400 mls/hr 01/03/25 14:51 01/03/25 15:57 Caldolor 800 Mg/200 Ml IVPB 400 mls/hr Q6H PRN Administration Breakthrough Pain Rated 1-3 or NPO Ibuprofen 400 mg 01/03/25 14:51 Ibuprofen 400 Mg Tablet PO Q6H PRN Pain Rated 1-3 Miscellaneous Information 1 each 01/03/25 00:01 Nonformulary Drug (Budesonide-Formoterol 160-4.5 Mcg/Actuation Hfa Aerosol Inhaler) Please XX 02/02/25 00:00 [facility] Miscellaneous Information 1 each 01/03/25 00:01 Protonix Is Duplicate Therapy With Famotidine_. Hold One? XX 02/02/25 00:00 [facility] Naloxone HCl 0.1 mg 01/03/25 14:51 Naloxone Hcl 0.4 Mg/Ml Vial IV PUSH Q2M PRN Opiate Reversal Non-Formulary Medication 2 inhalation 11/18/25 14:51 Budesonide-Formoterol INHALATION PRN PRN Cough Ondansetron HCl 4 mg 01/03/25 14:51 01/03/25 18:42 Ondansetron Inj 4 Mg/2 Ml Vial IV PUSH 4 mg Q4H PRN Administration Nausea And Vomiting Oxycodone/Acetaminophen 1 tablet 01/03/25 14:51 01/03/25 18:44 Oxycodone/Acetaminophen (*Crx) 5-325 Mg Tablet PO 1 tablet Q4H PRN Administration Pain Rated 4-6 Oxycodone/Acetaminophen 1 tab 01/03/25 14:51 01/03/25 23:30 Oxycodone/Acetaminophen (*Crx) 10-325 Mg Tablet PO 1 tab Q6H PRN Administration Pain Rated 7-10 Pantoprazole Sodium 40 mg 01/04/25 09:00 Pantoprazole 40 Mg Tablet PO Q12HR [facility] Polyethylene Glycol 17 gm 01/03/25 14:51 01/03/25 16:05 Polyethylene Glycol 3350 17 Gm Powd.Pack PO Not Given QAM [facility] Prednisone 5 mg 01/03/25 17:00 01/03/25 18:45 Prednisone 5 Mg Tablet PO 5 mg DAILY@1700 [facility] Administration Senna/Docusate Sodium 2 tab 01/03/25 17:00 01/03/25 16:05 Senna/Docusate Sodium Tablet PO Not Given BID [facility] Radiology Results: ITS Impressions Knee X-Ray 01/03/25 13:16 Impression: No acute fracture or malalignment. Labs Labs: Laboratory Results - last 24 hr 01/03/25 01/04/25 09:40 05:42 WBC 13.7 H RBC 4.07 L Hgb 11.6 L Hct 36.9 L MCV 90.7 MCH 28.5 MCHC 31.4 L RDW 13.9 Plt Count 324 MPV 10.1 Immature Gran % (Auto) 0.7 H Neut % (Auto) 86.3 H Lymph % (Auto) 9.0 L Dewey % (Auto) 3.9 Eos % (Auto) 0.0 Baso % (Auto) 0.1 L Lymph # (Auto) 1.23 Dewey # (Auto) 0.5 Eos # (Auto) 0.0 Baso # (Auto) 0.0 Abs Immat Gran (auto) 0.09 H Absolute Neuts (auto) 11.8 H Absolute Nucleated RBC 0.000 Nucleated RBC % 0.0 Sodium 136 L Potassium 3.7 Chloride 102 Carbon Dioxide 27 Anion Gap 7 BUN 10 D Creatinine 0.69 L Estim Creat Clear Calc 63 Estimated GFR > 60 Glucose 125 H Calcium 8.0 L Blood Type A Positive Antibody Screen Negative
[2025-01-04 08:30] VITALS: O2SAT 94
[2025-01-04] MEDS: EZETIMIBE 10 MG TABLET BY MOUTH (08:32)
[2025-01-04] MEDS: SENNA/DOCUSATE SODIUM TABLET 2 TAB PO (08:32)
[2025-01-04] MEDS: PANTOPRAZOLE 40 MG TABLET PO (08:33)
[2025-01-04] MEDS: FAMOTIDINE 20 MG TABLET PO (08:33)
[2025-01-04] MEDS: oxyCODONE/ACETAMINOPHEN (*CRX) 10-325 MG TABLET 1 TAB PO (08:33)
[2025-01-04] MEDS: ASPIRIN 81 MG ENTERIC TABLET PO (08:33)
[2025-01-04 08:36] VITALS: BP 135/51; PULSE 80; RESP 16; TEMP 36.7; O2SAT 97
[2025-01-04] MEDS: dilTIAZem HCL CD 180 MG CAP.24HR 360 MG PO (08:46)
[2025-01-04] MEDS: CYCLOBENZAPRINE HCL 5 MG TABLET PO (12:43)
== END 2025-01-04 14:43 | disposition home health service (06) ==
LOC: ANHSURGERY 08:30 → ANH3MEDSUR 15:03
PROVIDERS: Physician Assistant Surgical; PCP Internal Medicine; Visit Provider Orthopaedic Surgery
PROC: (CPT 27447; principal; 2025-01-03 10:30)
DX: M17.12 Unilateral primary osteoarthritis, left knee (principal); I10 Essential (primary) hypertension; K21.9 Gastro-esophageal reflux disease without esophagitis; E78.00 Pure hypercholesterolemia, unspecified; J45.901 Unspecified asthma with (acute) exacerbation; G47.30 Sleep apnea, unspecified; J38.3 Other diseases of vocal cords; R00.2 Palpitations; N90.4 Leukoplakia of vulva; R53.83 Other fatigue; M85.88 Other specified disorders of bone density and structure, other site; E66.9 Obesity, unspecified; Z68.36 Body mass index [BMI] 36.0-36.9, adult; Z79.83 Long term (current) use of bisphosphonates; Z79.82 Long term (current) use of aspirin; Z79.51 Long term (current) use of inhaled steroids; Z79.891 Long term (current) use of opiate analgesic; Z79.52 Long term (current) use of systemic steroids; Z79.1 Long term (current) use of non-steroidal anti-inflammatories (NSAID); Z98.890 Other specified postprocedural states; Z98.51 Tubal ligation status; Z90.49 Acquired absence of other specified parts of digestive tract; Z80.3 Family history of malignant neoplasm of breast; Z82.49 Family history of ischemic heart disease and other diseases of the circulatory system
CPT/HCPCS: 27447; 36415; 73560; 80048; 85025; 86850; 86900; 86901; 97110; 97161; 97166; 97535; J0690; A9270; C1713; C1776; J0166; J1100; J1171; J1741; J1885; J2003; J2270; J2371; J2405; J2704; J2795; J3010; J3290; J3360; J7030; J7120; J7512

== ENCOUNTER 2025-02-01 08:14 | Outpatient (CLI) | payer OTHER, SELFPAY ==
--- NOTE | ~2025-02-01 | MM_ITS ---
EXAMINATION: MM screening kyle BI w gini HISTORY: Screening TECHNIQUE: Craniocaudal and mediolateral oblique 3-D tomosynthesis images were obtained and synthetic 2-D images were generated. CAD analysis was submitted and interpreted. COMPARISON: Comparison to multiple prior studies sequentially, with oldest reviewed study dated , 07/08/2017 BREAST PARENCHYMAL COMPOSITION: Dense: The breasts are heterogeneously dense, which may obscure small masses. FINDINGS: There is no evidence of suspicious mass, calcification, or architectural distortion to suggest malignancy in either breast. IMPRESSION: 1. No mammographic evidence of malignancy. 2. Recommend routine screening mammography in one year. BI-RADS Category 1: Negative Reviewed, dictated and finalized at location A. [facility]
--- OUTSIDE RECORDS SUMMARY | 2025-02-01 08:33 | XMS_ITS | Clinical Summary ---
Author Organization [facility] Address [address] [place] [address] Phone Care Team Providers Care Flower Buncher Or Picker Name Role Phone Roni, Samuel Lynette DO Primary Care Provider [phone] Allergies No known active allergies Medications atorvastatin [...] complete this topic Human Papillomavirus (HPV) Immunization (No Doses Required) Completed Meningococcal Immunization (ACWY) Aged Out No longer [...] dated: 08/06/2022, 02/29/2020, 05/03/2021, 12/02/2018, and 12/20/2018 [facility]. BREAST TISSUE:The tissue of both [...] exam. Electronically signed by: Tabitha ashby/jocy:09/23/2023 16:20:07 Hydro Excavation Operator(s): MORELIA Odonnell)(M), [facility] letter sent: Normal Exam Reading location: [facility] BI-RADS: 2 Benign Procedure Note Tabitha [...] dated: 08/06/2022, 02/29/2020, 05/03/2021, 12/02/2018, and 12/20/2018 [facility]. BREAST TISSUE:The tissue of both [...] exam. Electronically signed by: Tabitha Garcia M.D. ab/jocy:09/23/2023 16:20:07 Hydro Excavation Operator(s): RT Belle(Natasha)(M), [facility] letter sent: Normal Exam Reading location: [facility] BI-RADS: 2 Benign us Slf Mammo Self Referred IMG MAMMO ORDERABLES Fin al Result from Last 3 Months or Most Recently Relevant to Health Maintenance Insurance MEDICARE C [employer] Care Teams Flower Buncher Or Picker Relationship Specialty Start Date End Date Samuel Tamayo DO [address] [facility] [address] [place] [address] PCP - General Internal Medicine 09/22/23
--- OUTSIDE RECORDS SUMMARY | 2025-02-01 08:33 | XMS_ITS | Clinical Summary ---
Author Organization [facility] Address [address] 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
--- OUTSIDE RECORDS SUMMARY | 2025-02-01 08:33 | XMS_ITS | Clinical Summary ---
Author Organization [facility] Address [address] [place] [address] Care Team Providers Care Shoe Turner Name Role Phone Silivo Day DO Primary Care Provider Source Comments [facility],non-owned Affiliates and Associated Physician Practices is amultiple site organization consisting of ambulatory clinics and hospital sitesin [place], [place], [place] and [place]. This disclosure is being madepursuant to the Care Everywhere program and may not contain all information available regarding this patient. Last updated 17.[facility] Allergies Active Allergy Reactions Criticality Noted Date [...] needed Active CALCIUM PO Active nystatin (MYCOSTATIN) 394524 UNIT/GM ointmentIndica tions:Lichen sclerosus,Vulv ar itching,Vulvar burning [...] on file Legal Sex Female 6:05 AM FISCAL TECHNICIAN Gender Identity Not on file Sexual Orientation Not on file Last Filed Vital Signs Vital Sign Reading Time Taken Comments Blood Pressure 140/80 01/23/2021 12:59 PM FISCAL TECHNICIAN Pulse - - Temperature - - Respiratory Rate - - Oxygen Saturation - - Inhaled Oxygen Concentration - - Weight 91.6 kg (202 lb) 01/23/2021 12:59 PM FISCAL TECHNICIAN Height 152.4 cm (5') 01/23/2021 12:59 PM FISCAL TECHNICIAN Body Mass Index 39.45 01/23/2021 12:59 PM FISCAL TECHNICIAN Plan of Treatment Health Maintenance Due Date [...] this topic Insurance [employer] MEDICARE Care Teams Shoe Turner Relationship Specialty Start Date End Date Silvio Day DO [address] [place] [address] PCP - General 01/20/21
--- OUTSIDE RECORDS SUMMARY | 2025-02-01 08:33 | XMS_ITS | Clinical Summary ---
Author Organization [facility] [address] Address [address] [place] [address] Care Team Providers Care Supervisor Hot Dip Plating Name Role Phone Silvio Day MD Primary Care Provider [phone] Allergies Active Allergy Reactions Criticality Noted Date Comments Codeine Other (See comments) High Reaction: unknown, Medications ergocalciferol (VITAMIN D2) 50,000 unit capsule take 1 capsule ([id number]) by ORAL route every week 12 4 [...] D2) 50,000 unit capsule take 1 capsule ([id number]) by ORAL route every week 4 6 [...] last one (lumpectomy): BX done 3 in [place] and 1 at [facility] OTHER SURGICAL HISTORY uterine Fobroids, adenomyosis and [...] 2 Phill's Disea se; Cause of : Rusk's Disease Hypertension Sister Hypertension; Other Sister thyroid; [...] on file Legal Sex Female 8:33 PM RETREAD OPERATOR Gender Identity Not on file Sexual [...] Plan of Treatment Not on file Insurance [facility] Care Teams Supervisor Hot Dip Plating Relationship Specialty Start Date End Date Silvio Day MD [address] [facility] [address] [place], [place] [id number] PCP - General Internal Medicine 12/25/17
--- OUTSIDE RECORDS SUMMARY | 2025-02-01 08:33 | XMS_ITS | Encounter Summary ---
Author Organization [facility] Address 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
--- OUTSIDE RECORDS SUMMARY | 2025-02-01 08:34 | XMS_ITS | Encounter Summary ---
Author Organization [facility] Address [address] [place] [address] Care Team Providers Care Survey Technician Name Role Phone Stephanie Wood MD Primary Care Provider Silvio Rose MD Primary Care Provider [phone] Encounter Details Date Type Department Care Team (Late st Contact Info) Description 06/18/2016 Orders Only [facility] ProviderAlice MD [address] [place] [id number] Social History Tobacco Use Types Packs/Day Years Used Date Smoking Tobacco: Never Assessed Alcohol Use Standard Drinks/Week Comments No 0 (1 standard drink = 0.6 oz pur e alcohol) Comments Unknown Sex and Gender Information Value Date Recorded Sex Assigned at Not on file Legal Sex Female 8:33 PM BEHAVIORAL TECHNICIAN Gender Identity Not on file Sexual [...] on filedocumented in this encounter Care Teams Survey Technician Relationship Specialty Start Date End Date Stephanie Wood MD PCP - General 07/16/10 12/24/17 Silvio Day MD [address] [facility] [address] [place] [address] PCP - General Internal Medicine 12/25/17 documented as of this encounter
== END 2025-02-01 08:15 | disposition home or self-care (01) ==
LOC: ANHFOHIMG 08:16
PROVIDERS: PCP Internal Medicine; Visit Provider Nurse Practitioner Family
DX: Z12.31 Encounter for screening mammogram for malignant neoplasm of breast (principal)
CPT/HCPCS: 77063; 77067